=== PATIENT | male | born 1940 | race Caucasian/White ===

== ENCOUNTER 2017-02-13 20:15 | Observation (INO) ==
--- NOTE | 2017-02-13 20:24 | Emergency Department Note ---
Disposition Clinical Impression: Rectal bleeding Disposition: Admitted As Inpatient Condition: Fair General Adult HPI - General Chief complaint: ED GI Bleed Stated complaint: rectal bleeding Time Seen by Provider: 02/13/17 20:22 Source: patient, family Limitations: no limitations - History of Present Illness Pain Scale: 0 - Related Data Home Medications Medication Instructions Recorded Confirmed Allopurinol [Zyloprim] 300 mg PO DAILY 02/13/17 02/13/17 Cefdinir 250 mg PO 02/13/17 02/13/17 Levothyroxine [Synthroid] 50 mcg PO 0630 02/13/17 02/13/17 Losartan Potassium [Cozaar] 100 mg PO DAILY 02/13/17 02/13/17 Metoprolol Tartrate [Lopressor] 25 mg PO BID 02/13/17 02/13/17 Warfarin [Coumadin] 4 mg PO 1800 02/13/17 02/13/17 Allergies Allergy/AdvReac Type Severity Reaction Status Date / Time Penicillins AdvReac foot Verified 08/06/16 09:54 tenderness 50 years ago vancomycin AdvReac See Verified 08/06/16 09:54 Comments Past Medical History - Past Medical History Medical history: Reports: atrial fibrillation, coronary artery disease, GERD, GI bleed, hyperlipidemia, hypertension, thyroid disease Surgical history: Reports: appendectomy, cholecystectomy Psychiatric history: Reports: anxiety, depression - Social History Smoking Status: Unknown if ever smoked Smokeless Tobacco Status: No Alcohol use: Reports: none, occasionally Drug use: Reports: none Physical Exam - General Limitations: no limitations General appearance: alert, in no apparent distress Course Vital Signs Temperature 97.7 F 02/13/17 20:17 Pulse Rate 93 02/13/17 20:17 Respiratory Rate 14 02/13/17 20:17 Blood Pressure 178/93 02/13/17 20:17 O2 Sat by Pulse Oximetry 96 02/13/17 20:17 Temperature 98.0 F 02/14/17 03:53 Pulse Rate 61 02/14/17 03:53 Respiratory Rate 16 02/14/17 03:53 Blood Pressure 135/78 02/14/17 03:53 O2 Sat by Pulse Oximetry 96 02/14/17 03:53 Oxygen Delivery Oxygen Delivery Room Air Medical Decision Making - Lab Data Result diagrams: 02/13/17 20:52 02/13/17 20:52 Lab Results 1102/13/17 02/13/17 Range/Units 20:52 20:52 20:52 WBC 6.2 (4.3-11.1) K/mcL RBC 4.05 L (4.19-5.50) M/mcL Hgb 12.4 L (12.9-16.9) g/dL Hct 36.6 L (37.5-50.1) % MCV 90.4 (83.0-100.0) fL MCH 30.6 (28.0-33.3) pg MCHC 33.9 (31.6-35.5) g/dL RDW 15.4 H (11.5-14.5) % Plt Count 97 L (140-400) K/mcL MPV 9.7 (9.4-12.4) fL Immature Gran % 0.6 (0-4) % Seg Neutrophils % 77.6 % Lymphocytes % 12.3 % Monocytes % 7.1 % Eosinophils % 2.1 % Basophils % 0.3 % Neutrophils # 4.8 (1.6-8.9) K/mcL Lymphocytes # 0.8 (0.6-4.6) K/mcL Monocytes # 0.4 (0.0-1.3) K/mcL Eosinophils # 0.1 (0.0-0.6) K/mcL Basophils # 0.0 (0.0-0.2) K/mcL Immature Plt Fraction 3.0 (1.1-6.1) % PT 28.0 H (9.4-12.1) Seconds INR 2.5 Sodium 130 L (136-145) mEq/L Potassium 4.3 (3.5-4.5) mEq/L Chloride 95 L (98-109) mEq/L Carbon Dioxide 27 (19-29) mEq/L BUN 19 (8-26) mg/dL Creatinine 0.72 (0.72-1.25) mg/dL Est GFR ( Amer) > 60 (> 60) Est GFR (Non-Af Amer) > 60 (> 60) BUN/Creatinine Ratio 26 (6-26) Glucose 130 H (70-99) mg/dL Calculated Osmolality 274 L (280-300) Calcium 9.4 (8.6-10.8) mg/dL Total Bilirubin 1.9 H (0.2-1.2) mg/dL AST 52 H (5-34) Units/L ALT 33 (0-55) Units/L Alkaline Phosphatase 152 H (38-126) Units/L Serum Total Protein 7.7 (6.0-8.3) g/dL Albumin 3.5 (3.5-5.0) g/dL Globulin 4.2 H (2.4-3.5) g/dL Albumin/Globulin Ratio 0.8 L (1.1-2.2) Stool Occult Blood (Negative) Blood Type Antibody Screen 02/13/17 02/13/17 Range/Units 20:52 21:05 WBC (4.3-11.1) K/mcL RBC (4.19-5.50) M/mcL Hgb (12.9-16.9) g/dL Hct (37.5-50.1) % MCV (83.0-100.0) fL MCH (28.0-33.3) pg MCHC (31.6-35.5) g/dL RDW (11.5-14.5) % Plt Count (140-400) K/mcL MPV (9.4-12.4) fL Immature Gran % (0-4) % Seg Neutrophils % % Lymphocytes % % Monocytes % % Eosinophils % % Basophils % % Neutrophils # (1.6-8.9) K/mcL Lymphocytes # (0.6-4.6) K/mcL Monocytes # (0.0-1.3) K/mcL Eosinophils # (0.0-0.6) K/mcL Basophils # (0.0-0.2) K/mcL Immature Plt Fraction (1.1-6.1) % PT (9.4-12.1) Seconds INR Sodium (136-145) mEq/L Potassium (3.5-4.5) mEq/L Chloride (98-109) mEq/L Carbon Dioxide (19-29) mEq/L BUN (8-26) mg/dL Creatinine (0.72-1.25) mg/dL Est GFR ( Amer) (> 60) Est GFR (Non-Af Amer) (> 60) BUN/Creatinine Ratio (6-26) Glucose (70-99) mg/dL Calculated Osmolality (280-300) Calcium (8.6-10.8) mg/dL Total Bilirubin (0.2-1.2) mg/dL AST (5-34) Units/L ALT (0-55) Units/L Alkaline Phosphatase (38-126) Units/L Serum Total Protein (6.0-8.3) g/dL Albumin (3.5-5.0) g/dL Globulin (2.4-3.5) g/dL Albumin/Globulin Ratio (1.1-2.2) Stool Occult Blood Negative (Negative) Blood Type A POSITIVE Antibody Screen NEGATIVE Attestation Statement - Attestation Attestation: I examined this patient and my medical decision-making was reviewed with the Resident Physician. I agree with the documented findings, disposition and treatment plan as described except to the extent set forth below. [id number] time provided Patient notes bright red blood per rectum. He takes Coumadin for atrial fibrillation. Appears in no acute distress on exam. Triage note and vital signs reviewed by me
--- NOTE | 2017-02-13 20:39 | Emergency Department Note ---
Disposition Clinical Impression: Rectal bleeding Disposition: Admitted As Inpatient Condition: Fair Time of Disposition: 22:52 GI Bleed HPI - General Chief complaint: ED GI Bleed Stated complaint: rectal bleeding Time Seen by Provider: 02/13/17 20:22 Source: patient, family Limitations: no limitations Nursing Notes Reviewed: Yes Vital Signs Reviewed: Yes - History of Present Illness HPI Narrative: Patient is a 76-year-old male who presents to [facility] ED with a chief complaint of blood in his stool. States he had a bowel movement around 5:30 this evening and there was bright red blood mixed in with the stool. He then had another bowel movement about an hour ago and says it was again a lot of bright red blood. Denies any abdominal pain. No nausea, vomiting, fever or chills. No chest pain, difficulty breathing. No lightheadedness or dizziness. States his blood pressure has been running on the higher side. Patient currently does have a feeding tube in place for dysphagia. Does have a prior history of a upper GI bleed due to Colleen-Bhat tear. However states at that time his stool was melanotic. Pt Subjective Complaint: gross hematochezia Onset (ago): hour(s) Consistency: constant Severity: none Improves with: nothing Worsens with: nothing Context: history of GI bleed, anticoagulant use Associated symptoms: Denies: abdominal pain, nausea, vomiting, fever, chills, shortness of breath Treatments Prior to Arrival: none - Related Data Home Medications Medication Instructions Recorded Confirmed Allopurinol [Zyloprim] 300 mg PO DAILY 02/13/17 02/13/17 Cefdinir 250 mg PO 02/13/17 02/13/17 Levothyroxine [Synthroid] 50 mcg PO 0630 02/13/17 02/13/17 Losartan Potassium [Cozaar] 100 mg PO DAILY 02/13/17 02/13/17 Metoprolol Tartrate [Lopressor] 25 mg PO BID 02/13/17 02/13/17 Warfarin [Coumadin] 4 mg PO 1800 02/13/17 02/13/17 Allergies Allergy/AdvReac Type Severity Reaction Status Date / Time Penicillins AdvReac foot Verified 08/06/16 09:54 tenderness 50 years ago vancomycin AdvReac See Verified 08/06/16 09:54 Comments All systems ED: reviewed and negative except as stated. Past Medical History - Past Medical History Attestation: Yes The following information was validated with the patient. Source: patient Medical history: Reports: atrial fibrillation, coronary artery disease, GERD, GI bleed, hyperlipidemia, hypertension, thyroid disease Surgical history: Reports: appendectomy, cholecystectomy Psychiatric history: Reports: anxiety, depression - Social History Smoking Status: Unknown if ever smoked Smokeless Tobacco Status: No Alcohol use: Reports: none, occasionally Drug use: Reports: none Physical Exam CONSTITUTIONAL: Alert and oriented X3, well-nourished, well appearing, in no apparent distress HEAD: Normocephalic; atraumatic. EYES: EOMI, no scleral icterus. NOSE: The nose is normal in appearance without rhinorrhea RESP: Normal chest excursion with respiration; breath sounds clear and equal bilaterally; no wheezes, rhonchi, or rales CARD: Regular rhythm, without murmurs, rub or gallop ABD: Non-distended; non-tender, soft,without rigidity, rebound or guarding SKIN: Normal for age and race; warm and dry; no apparent lesions - General Limitations: no limitations General appearance: alert, in no apparent distress Course Course Narrative: Patient seen and examined. Complaint of rectal bleeding, bright red blood through the rectum. We will do a Hemoccult. Labs, coags, type and screen ordered. Since patient is on Coumadin, suspect will likely admit for monitoring. - Reevaluation(s) Reevaluation #1: Hemoglobin is 12.4. Vital signs stable. Hemoccult was actually negative for occult blood. However we will go ahead and admit for observation overnight since patient is on Coumadin. I discussed with hospitalist Dr. Toth who has accepted patient for admission. Time: 22:49 Vital Signs Temperature 97.7 F 02/13/17 20:17 Pulse Rate 93 02/13/17 20:17 Respiratory Rate 14 02/13/17 20:17 Blood Pressure 178/93 02/13/17 20:17 O2 Sat by Pulse Oximetry 96 02/13/17 20:17 Temperature 97.7 F 02/13/17 20:17 Pulse Rate 67 02/13/17 21:39 Respiratory Rate 18 02/13/17 22:46 Blood Pressure 127/79 02/13/17 22:46 O2 Sat by Pulse Oximetry 95 02/13/17 21:39 Oxygen Delivery Oxygen Delivery Room Air GI Bleed - Medical Records Medical records reviewed: Yes I reviewed the patient's medical records. - Lab Data Lab results reviewed: Yes I reviewed the patient's lab results. Result diagrams: 02/13/17 20:52 02/13/17 20:52 Lab Results 02/13/17 02/13/17 02/13/17 Range/Units 20:52 20:52 20:52 WBC 6.2 (4.3-11.1) K/mcL RBC 4.05 L (4.19-5.50) M/mcL Hgb 12.4 L (12.9-16.9) g/dL Hct 36.6 L (37.5-50.1) % MCV 90.4 (83.0-100.0) fL MCH 30.6 (28.0-33.3) pg MCHC 33.9 (31.6-35.5) g/dL RDW 15.4 H (11.5-14.5) % Plt Count 97 L (140-400) K/mcL MPV 9.7 (9.4-12.4) fL Immature Gran % 0.6 (0-4) % Seg Neutrophils % 77.6 % Lymphocytes % 12.3 % Monocytes % 7.1 % Eosinophils % 2.1 % Basophils % 0.3 % Neutrophils # 4.8 (1.6-8.9) K/mcL Lymphocytes # 0.8 (0.6-4.6) K/mcL Monocytes # 0.4 (0.0-1.3) K/mcL Eosinophils # 0.1 (0.0-0.6) K/mcL Basophils # 0.0 (0.0-0.2) K/mcL Immature Plt Fraction 3.0 (1.1-6.1) % PT 28.0 H (9.4-12.1) Seconds INR 2.5 Sodium 130 L (136-145) mEq/L Potassium 4.3 (3.5-4.5) mEq/L Chloride 95 L (98-109) mEq/L Carbon Dioxide 27 (19-29) mEq/L BUN 19 (8-26) mg/dL Creatinine 0.72 (0.72-1.25) mg/dL Est GFR ( Amer) > 60 (> 60) Est GFR (Non-Af Amer) > 60 (> 60) BUN/Creatinine Ratio 26 (6-26) Glucose 130 H (70-99) mg/dL Calculated Osmolality 274 L (280-300) Calcium 9.4 (8.6-10.8) mg/dL Total Bilirubin 1.9 H (0.2-1.2) mg/dL AST 52 H (5-34) Units/L ALT 33 (0-55) Units/L Alkaline Phosphatase 152 H (38-126) Units/L Serum Total Protein 7.7 (6.0-8.3) g/dL Albumin 3.5 (3.5-5.0) g/dL Globulin 4.2 H (2.4-3.5) g/dL Albumin/Globulin Ratio 0.8 L (1.1-2.2) Stool Occult Blood (Negative) Blood Type Antibody Screen 02/13/17 02/13/17 Range/Units 20:52 21:05 WBC (4.3-11.1) K/mcL RBC (4.19-5.50) M/mcL Hgb (12.9-16.9) g/dL Hct (37.5-50.1) % MCV (83.0-100.0) fL MCH (28.0-33.3) pg MCHC (31.6-35.5) g/dL RDW (11.5-14.5) % Plt Count (140-400) K/mcL MPV (9.4-12.4) fL Immature Gran % (0-4) % Seg Neutrophils % % Lymphocytes % % Monocytes % % Eosinophils % % Basophils % % Neutrophils # (1.6-8.9) K/mcL Lymphocytes # (0.6-4.6) K/mcL Monocytes # (0.0-1.3) K/mcL Eosinophils # (0.0-0.6) K/mcL Basophils # (0.0-0.2) K/mcL Immature Plt Fraction (1.1-6.1) % PT (9.4-12.1) Seconds INR Sodium (136-145) mEq/L Potassium (3.5-4.5) mEq/L Chloride (98-109) mEq/L Carbon Dioxide (19-29) mEq/L BUN (8-26) mg/dL Creatinine (0.72-1.25) mg/dL Est GFR ( Amer) (> 60) Est GFR (Non-Af Amer) (> 60) BUN/Creatinine Ratio (6-26) Glucose (70-99) mg/dL Calculated Osmolality (280-300) Calcium (8.6-10.8) mg/dL Total Bilirubin (0.2-1.2) mg/dL AST (5-34) Units/L ALT (0-55) Units/L Alkaline Phosphatase (38-126) Units/L Serum Total Protein (6.0-8.3) g/dL Albumin (3.5-5.0) g/dL Globulin (2.4-3.5) g/dL Albumin/Globulin Ratio (1.1-2.2) Stool Occult Blood Negative (Negative) Blood Type A POSITIVE Antibody Screen NEGATIVE - EKG Data EKG attestation: Yes I reviewed and interpreted this EKG. EKG results narrative: EKG done at 2038 shows atrial fibrillation with a rate of 81 bpm. Right axis deviation. Right bundle branch block present. No acute ST elevation.
[2017-02-13 20:59] LABS: Basophils % 0.3 %; Hematocrit 36.6 % (37.5-50.1); Immature Granulocytes % 0.6 % (0-4)
[2017-02-13 21:01] LABS: Eosinophils # 0.1 K/mcL (0.0-0.6); Eosinophils % 2.1 %; Hemoglobin 12.4 g/dL (12.9-16.9); Lymphocytes # 0.8 K/mcL (0.6-4.6); Lymphocytes % 12.3 %; Mean Corpuscular HGB Conc 33.9 g/dL (31.6-35.5); Mean Corpuscular Hemoglobin 30.6 pg (28.0-33.3); Mean Corpuscular Volume 90.4 fL (83.0-100.0); Mean Platelet Volume 9.7 fL (9.4-12.4); Monocytes # 0.4 K/mcL (0.0-1.3); Monocytes % 7.1 %; Neutrophils # 4.8 K/mcL (1.6-8.9); Platelet Count 97 K/mcL (140-400); Red Blood Count 4.05 M/mcL (4.19-5.50); Red Cell Distribution Width 15.4 % (11.5-14.5); Segmented Neutrophils % 77.6 %
[2017-02-13 21:08] LABS: INR 2.5
[2017-02-13 21:13] LABS: Alanine Aminotransferase 33 Units/L (0-55); Albumin 3.5 g/dL (3.5-5.0); Albumin/Globulin Ratio 0.8 (1.1-2.2); Alkaline Phosphatase 152 Units/L (38-126); Aspartate Amino Transferase 52 Units/L (5-34); BUN/Creatinine Ratio 26 (6-26); Bilirubin,Total 1.9 mg/dL (0.2-1.2); Blood Urea Nitrogen 19 mg/dL (8-26); Calcium 9.4 mg/dL (8.6-10.8); Carbon Dioxide 27 mEq/L (19-29); Chloride 95 mEq/L (98-109); Globulin 4.2 g/dL (2.4-3.5); Glucose 130 mg/dL (70-99); Osmolality,Calculated 274 (280-300); Potassium 4.3 mEq/L (3.5-4.5); Sodium 130 mEq/L (136-145); Total Protein 7.7 g/dL (6.0-8.3); eGFR For African Americans > 60 (> 60); eGFR For Non-African Americans > 60 (> 60)
--- NOTE | 2017-02-14 03:06 | Internal Med History&Physical ---
Date of Encounter: 02/14/17 Time of Encounter: 01:00 Assessment and Plan (1) GI bleeding Current visit: No Status: Acute -Patient with history of upper GI bleed secondary to Colleen-Bhat tear with 1 day history of lower GI bleed. -Patient is hemodynamically stable with a hemoglobin of 12.4. -GI will be consulted and appreciate recommendations. Qualifiers: GI bleed type/associated pathology: unspecified gastrointestinal hemorrhage type Qualified Code(s): K92.2 - Gastrointestinal hemorrhage, unspecified (2) Chronic anemia Current visit: Yes Status: Acute -Hemodynamically stable as above. -Will continue to monitor. (3) Chronic idiopathic thrombocytopenia Current visit: Yes Status: Acute -Platelets approximately at baseline at 97. -Will continue to monitor. (4) Atrial fibrillation Current visit: No Status: Chronic -Rate controlled; continue home medications. -INR within therapeutic range. Qualifiers: Atrial fibrillation type: paroxysmal Qualified Code(s): I48.0 - Paroxysmal atrial fibrillation (5) Hypertension Current visit: No Status: Chronic -Controlled; continue home medications. Qualifiers: Hypertension type: essential hypertension Qualified Code(s): I10 - Essential (primary) hypertension (6) Hypothyroidism Current visit: No Status: Chronic -Continue home medications. Qualifiers: Hypothyroidism type: acquired Qualified Code(s): E03.9 - Hypothyroidism, unspecified (7) DVT prophylaxis Current visit: No Status: Acute -INR within therapeutic range. Internal Medicine - H&P: HPI Chief complaint: recatal bleeding Admitted From: Home Plans for Post Hospital Care: Home History of present illness: Patient is a 76-year-old male with past medical history significant for upper GI bleed due to Colleen-Bhat tear, atrial fibrillation, coronary arterial disease, hypertension, hyperlipidemia and hypothyroid who presents to ER on 03/20 with rectal bleeding. He reports of a 1 day history of blood in toilet which occurred twice before deciding to come to the ER for evaluation. In the ER patient is Hemoccult negative and hemodynamically stable; INR within therapeutic range at 2.5. Patient will be admitted to medical surgical floor for observation for lower GI bleed. Past Med Surg Social Fam HX - Past Medical History Medical history: atrial fibrillation, coronary artery disease, GERD, GI bleed, hyperlipidemia, hypertension, thyroid disease, other Psychiatric history: anxiety, depression - Past Surgical History Surgical History: appendectomy, cholecystectomy - Social History Smoking Status: Former smoker Smokeless Tobacco Status: No Alcohol use: none Drug use: none - Family History Father Living Status: Hx Family Cardiac Disorders: Yes Hx Family Respiratory Disorders: (TB) Hx Family Cancer: Yes (prostate) Mother Living Status: Age at : 83 Cause of : Alzeimers Hx Family Cardiac Disorders: Yes (HTN) Hx Family Respiratory Disorders: No Hx Family Cancer: No Hx Family GI Disorders: No Hx Family Genitourinary Disorders: No Hx Family Endocrine Disorder: No Hx Family Musculoskeletal Disorders: No Hx Family Neuromuscular Disorders: No Hx Family Neurologic Disorders: Yes (Alzeimers) Hx Family HEENT Disorders: No Hx Family Autoimmune Disorders: No Hx Family Reproductive Disorders: No Hx Family Psychosocial Disorders: No Hx Family Medical Disorders: No Internal Medicine - H&P: Meds Allopurinol [Zyloprim] 300 mg PO DAILY 02/13/17 [History] Cefdinir 250 mg PO 02/13/17 [History] Levothyroxine [Synthroid] 50 mcg PO 0630 02/13/17 [History] Losartan Potassium [Cozaar] 100 mg PO DAILY 02/13/17 [History] Metoprolol Tartrate [Lopressor] 25 mg PO BID 02/13/17 [History] Warfarin [Coumadin] 4 mg PO 1800 02/13/17 [History] 3 Allergy/AdvReac Type Severity Reaction Status Date / Time Penicillins AdvReac foot Verified 08/06/16 09:54 tenderness 50 years ago vancomycin AdvReac See Verified 08/06/16 09:54 Comments All Systems PM: A 10-system review of systems was performed and is negative for pertinent findings except as documented above in the HPI. - Constitutional Vitals: Temp Pulse Resp BP Pulse Ox 98.1 F 71 16 130/71 95 02/14/17 00:13 02/14/17 00:13 02/14/17 00:13 02/14/17 00:13 02/14/17 00:13 General appearance: Present: A&O X 3 - Head Head exam: Present: normocephalic - Eye Eye exam: Present: normal appearance - ENT ENT exam: Present: mucous membranes dry - Respiratory Respiratory exam: Present: CTAB. Absent: accessory muscle use, rales, rhonchi, wheezes - Cardiovascular Cardiovascular exam: Present: RRR, +S1, +S2. Absent: diastolic murmur, gallop, rubs, systolic murmur - GI/Abdominal GI/Abdominal exam: Present: normal bowel sounds, soft, no peritoneal signs. Absent: distended, tenderness - Extremities Exam Extremities exam: Present: warm - Neurological Exam Neurological exam: Present: alert, oriented X3 - Psychiatric Psychiatric exam: Present: normal mood - Skin Skin exam: Present: normal color Internal Med - H&P Results - Labs CBC & Chem 7: 02/13/17 20:52 02/13/17 20:52
[2017-02-14] MEDS ORDERED: Naloxone 0.4 MG/ML INJ IVP PRN (03:41)
[2017-02-14 05:36] LABS: Basophils % 0.3 %; Eosinophils # 0.1 K/mcL (0.0-0.6); Eosinophils % 2.4 %; Hematocrit 34.3 % (37.5-50.1); Hemoglobin 11.5 g/dL (12.9-16.9); Immature Granulocytes % 0.7 % (0-4); Lymphocytes # 0.9 K/mcL (0.6-4.6); Lymphocytes % 16.1 %; Mean Corpuscular HGB Conc 33.5 g/dL (31.6-35.5); Mean Corpuscular Hemoglobin 30.3 pg (28.0-33.3); Mean Corpuscular Volume 90.5 fL (83.0-100.0); Monocytes # 0.5 K/mcL (0.0-1.3); Neutrophils # 4.2 K/mcL (1.6-8.9); Red Blood Count 3.79 M/mcL (4.19-5.50); Red Cell Distribution Width 15.4 % (11.5-14.5); Segmented Neutrophils % 72.5 %
[2017-02-14 05:45] LABS: Platelet Count 87 K/mcL (140-400)
[2017-02-14 05:46] LABS: BUN/Creatinine Ratio 30 (6-26); Blood Urea Nitrogen 19 mg/dL (8-26); Calcium 8.9 mg/dL (8.6-10.8); Carbon Dioxide 27 mEq/L (19-29); Chloride 100 mEq/L (98-109); Glucose 89 mg/dL (70-99); Osmolality,Calculated 278 (280-300); Potassium 4.3 mEq/L (3.5-4.5); Sodium 133 mEq/L (136-145); eGFR For African Americans > 60 (> 60); eGFR For Non-African Americans > 60 (> 60)
[2017-02-14] MEDS ORDERED: Cefdinir 300 MG CAPSULE PO SCH (09:00)
[2017-02-14] MEDS: Pantoprazole 40 MG VIAL IVP SCH ×2 (10:27→18:43)
[2017-02-14] MEDS: Furosemide 40 MG TABLET PO SCH ×2 (10:33→18:43)
--- NOTE | 2017-02-14 10:54 | Gastroenterology Consult Note ---
Addendum entered and electronically signed by Ge Hughes CNP 02/14/17 11 :26: Continue to hold Coumadin. Check PT/INR in AM, if greater than 1.5, recommend 2 units FFP prior to colonoscopy. Original Note: <Ge Hughes - Last Filed: 02/14/17 11:04> Date of Encounter: 02/14/17 Time of Encounter: 10:35 - Assessment and plan (1) GI bleeding Current Visit: No Status: Acute Assessment and plan: Pt presented with c/o BRBPR. Hgb on admission was 12.4 and this AM Hgb 11.5. Plan for colonoscopy tomorrow. Clear liquid diet today, no red or purple. NPO at midnight. If unable tolerate NuLytely please use MiraLAX prep. If not clear by 6 AM, give 2 tap water enemas. Qualifiers: GI bleed type/associated pathology: unspecified gastrointestinal hemorrhage type Qualified Code(s): K92.2 - Gastrointestinal hemorrhage, unspecified (2) Thrombocytopenia Current Visit: No Status: Chronic Assessment and plan: Liver ultrasound 01/28/2016 negative for cirrhosis but did not show liver cysts. (3) Elevated LFTs Current Visit: No Status: Acute Assessment and plan: Bilirubin and AST have been elevated since 2013, and appeared to be at baseline. Liver ultrasound 01/28/2016 negative for cirrhosis, but did show hepatic cysts. He did have a liver biopsy 09/07/2013 which was negative. - Time Spent With Patient Total time spent is greater than 50% in coordination of care (as documented) at patient's floor/unit and/or counseling patient: GI History of Present Illness - Data of Consult Patient: known to practice within the last 3 years Consult date: 02/14/17 Requesting Physician: Jennifer eRstrepo MD - Consult Narrative Reason for consult: Lower GI Bleed History of present illness: Mr. Perez is a 76 year old male with PMHx of A. fib, CAD, GERD, GI bleed, HLD , HTN, thyroid disease who presented to the ED with complaints of blood in his stool. States he had a bowel movement and there was bright red blood mixed in with the stool. He then had another bowel movement about an hour prior to admission and says it had a lot of bright red blood. He denies fever, chills, chest pain, dyspnea, dizziness, lightheadedness, abdominal pain, nausea, vomiting, hematemesis, of melena. In the ED fecal occult blood test was negative. Hgb on admission was 12.4 and this AM Hgb 11.5. Procedures: EGD Dr. Renteria: Normal, old PEG tube in place. EGD 01/31/2016 Dr. Salazar: Diverticulum in lower third of esophagus, PEG tube in place, clotted blood in cardia, mucosal tear in the gastric cardia-likely mallowy-wise tear. EGD 01/30/2016 Dr. Renteria: PEG placement. EGD 01/29/2016 Dr. Renteria: Normal EGD 09/06/2013 mildly erythematous/granular gastric mucosa. Empirically dilated. EGD 07/17/2013 normal Colonoscopy 09/04/2012 Dr. Soria two 5-12 mm tubular adenoma in the hepatic flexure and proximal ascending colon, diverticulosis, internal hemorrhoids. NSAIDs: None Anticoagulation: Coumadin Past Med Surg Social Fam HX - Past Medical History Medical history: atrial fibrillation, coronary artery disease, GERD, GI bleed, hyperlipidemia, hypertension, thyroid disease Psychiatric history: anxiety, depression - Past Surgical History Surgical History: appendectomy, cholecystectomy - Social History Smoking Status: Unknown if ever smoked Smokeless Tobacco Status: No Alcohol use: none, occasionally Drug use: none - Family History Father Living Status: Hx Family Cardiac Disorders: Yes Hx Family Respiratory Disorders: (TB) Hx Family Cancer: Yes (prostate) Mother Living Status: Age at : 83 Cause of : Alzeimers Hx Family Cardiac Disorders: Yes (HTN) Hx Family Respiratory Disorders: No Hx Family Cancer: No Hx Family GI Disorders: No Hx Family Genitourinary Disorders: No Hx Family Endocrine Disorder: No Hx Family Musculoskeletal Disorders: No Hx Family Neuromuscular Disorders: No Hx Family Neurologic Disorders: Yes (Alzeimers) Hx Family HEENT Disorders: No Hx Family Autoimmune Disorders: No Hx Family Reproductive Disorders: No Hx Family Psychosocial Disorders: No Hx Family Medical Disorders: No - Gastrointestinal Gastrointestinal: Present: as per HPI - Constitutional Constitutional: as per HPI - EENT Eyes: as per HPI Ears: Present: as per HPI Nose, mouth and throat: Present: as per HPI - Cardiovascular Cardiovascular ROS: Present: as per HPI - Respiratory Respiratory IM: Present: as per HPI - Genitourinary Genitourinary: Absent: change in color, Urinary frequency - Neurological ROS Neurological GI: Present: as per HPI - Hematologic/Lymphatic Hematologic/Lymphatic pediatric: Present: as per HPI - Musculoskeletal Musculoskeletal ROS GI: Present: as per HPI - Integumentary Integumentary GI: Present: as per HPI - Psychiatric ROS Psychiatric GI: Present: as per HPI - Endocrine Endocrine IM: Present: as per HPI - Constitutional Vitals: Temp Pulse Resp BP Pulse Ox 98.2 F 68 14 141/71 96 02/14/17 07:18 02/14/17 07:18 02/14/17 07:18 02/14/17 07:18 02/14/17 07:18 General appearance: Present: cooperative, A&O X 3, no acute distress, answers questions appropriately - Head Head exam: Present: atraumatic, normocephalic - Eye Eye exam: Present: normal appearance, sclera anicteric - ENT ENT exam: Present: mucous membranes dry - Neck Neck exam general surgery: Present: normal inspection, trachea midline - Respiratory Respiratory exam: Present: CTAB. Absent: rales, rhonchi - Cardiovascular Cardiovascular exam: Present: RRR, +S1, +S2 - GI/Abdominal GI/Abdominal exam: Present: soft, no peritoneal signs. Absent: distended, firm , guarding, tenderness Additional comments: PEG tub in place. - Rectal Rectal exam: Present: deferred - Extremities Exam Extremities exam: Present: warm - Neurological Exam Neurological exam: Present: no focal deficits - Psychiatric Psychiatric exam: Present: normal affect, normal mood - Skin Skin exam: Present: dry, intact, normal color, warm Results - Labs CBC & Chem 7: 02/14/17 05:14 02/14/17 05:14 Labs: Last Result Calcium 8.9 mg/dL (8.6-10.8) 02/14/17 05:14 Stool Occult Blood Negative (Negative) 02/13/17 21:05 Entire Visit Hgb 11.5 g/dL (12.9-16.9) L 02/14/17 05:14 Hct 34.3 % (37.5-50.1) L 02/14/17 05:14 PT 28.0 Seconds (9.4-12.1) H 02/13/17 20:52 Total Bilirubin 1.9 mg/dL (0.2-1.2) H 02/13/17 20:52 AST 52 Units/L (5-34) H 02/13/17 20:52 ALT 33 Units/L (0-55) 02/13/17 20:52 - ABG ABG results: PT/INR, D-dimer PT 28.0 Seconds (9.4-12.1) H 02/13/17 20:52 Consult Discharge Plan - Plan Referrals: Davy Holder DO [Primary Care Provider] - <Doris Renteria - Last Filed: 02/14/17 14:36> Date of Encounter: 02/14/17 Time of Encounter: 14:00 - Time Spent With Patient Total time spent is greater than 50% in coordination of care (as documented) at patient's floor/unit and/or counseling patient: GI History of Present Illness - Data of Consult Requesting Physician: Jennifer Restrepo MD - Consult Narrative History of present illness: Mr. Perez is a 76 year old male - Constitutional Vitals: Temp Pulse Resp BP Pulse Ox 98.0 F 92 18 156/82 96 02/14/17 11:02 02/14/17 11:02 02/14/17 11:02 02/14/17 11:02 02/14/17 11:02 Results - Labs CBC & Chem 7: 02/14/17 05:14 02/14/17 05:14 Labs: Last Result Calcium 8.9 mg/dL (8.6-10.8) 02/14/17 05:14 Stool Occult Blood Negative (Negative) 02/13/17 21:05 Entire Visit Hgb 11.5 g/dL (12.9-16.9) L 02/14/17 05:14 Hct 34.3 % (37.5-50.1) L 02/14/17 05:14 PT 27.7 Seconds (9.4-12.1) H 02/14/17 11:35 Total Bilirubin 1.9 mg/dL (0.2-1.2) H 02/13/17 20:52 AST 52 Units/L (5-34) H 02/13/17 20:52 ALT 33 Units/L (0-55) 02/13/17 20:52 - ABG ABG results: PT/INR, D-dimer PT 27.7 Seconds (9.4-12.1) H 02/14/17 11:35 - Attending Attestation I examined this patient and my medical decision-making was reviewed with the Resident Physician. I agree with the documented findings, disposition and treatment plan as described except to the extent set forth below.
[2017-02-14 12:00] LABS: INR 2.5; Prothrombin Time 27.7 Seconds (9.4-12.1)
--- NOTE | 2017-02-14 15:12 | Electrocardiograph Report ---
[place] [id number] Test Date: 2017-02-13 Pat Name: Sean Perez Department: 103 Room: 3A Gender: M [employer]: ADRIANA : 1940 Requested By: Canelo Fuentes Order Number: [id number] Reading MD: Neri Mcdaniel MD Measurements Intervals [place] Rate: 81 P: IN: 0 QRS: 120 QRSD: 119 T: -14 QT: 389 QTc: 427 Interpretive Statements ATRIAL FIBRILLATION MARKED RIGHT AXIS DEVIATION RIGHT BUNDLE BRANCH BLOCK Electronically Signed On 02-14-2017 15:10:20 EST by Neri Mcdaniel MD
[2017-02-14] MEDS ORDERED: SODIUM CHLORIDE/NAHCO3/KCL/PEG 4,000 ML SOLN.RECON PO ONE (17:00)
--- NOTE | 2017-02-14 17:21 | Event Note ---
Date of Encounter: 02/14/17 Time of Encounter: 14:50 Patient is a 76y/o male admitted for BRBPR/GI bleed. He was evaluated by GI and is scheduled for colonoscopy in am has history of Afib, holding coumadin at this time given GI bleed will monitor INR, if INR>1.5 pt to receive FFP in am Pt seen and examined at bedside and denies any abd discomfort, however does report of having another episode of BRBPR since hospitalization H&H within acceptable range. will continue to closely monitor restarted home medications
[2017-02-14 21:27] LABS: Hematocrit 35.5 % (37.5-50.1); Hemoglobin 12.1 g/dL (12.9-16.9)
[2017-02-15] MEDS: Pantoprazole 40 MG VIAL IVP SCH ×2 (05:30→18:17)
[2017-02-15 05:42] LABS: INR 2.2; Mean Platelet Volume 9.8 fL (9.4-12.4); Prothrombin Time 24.3 Seconds (9.4-12.1)
[2017-02-15 05:44] LABS: Basophils % 0.5 %; Eosinophils # 0.1 K/mcL (0.0-0.6); Eosinophils % 1.4 %; Hematocrit 37.1 % (37.5-50.1); Hemoglobin 12.3 g/dL (12.9-16.9); Immature Granulocytes % 0.5 % (0-4); Immature Platelets 3.1 % (1.1-6.1); Lymphocytes # 0.9 K/mcL (0.6-4.6); Mean Corpuscular HGB Conc 33.2 g/dL (31.6-35.5); Mean Corpuscular Hemoglobin 30.3 pg (28.0-33.3); Mean Corpuscular Volume 91.4 fL (83.0-100.0); Monocytes # 0.5 K/mcL (0.0-1.3); Monocytes % 7.3 %; Red Blood Count 4.06 M/mcL (4.19-5.50); Red Cell Distribution Width 15.3 % (11.5-14.5); Segmented Neutrophils % 77.3 %
[2017-02-15 05:45] LABS: Platelet Count 94 K/mcL (140-400)
[2017-02-15 05:51] LABS: Alanine Aminotransferase 35 Units/L (0-55); Albumin 3.3 g/dL (3.5-5.0); Albumin/Globulin Ratio 0.8 (1.1-2.2); Alkaline Phosphatase 141 Units/L (38-126); Aspartate Amino Transferase 55 Units/L (5-34); BUN/Creatinine Ratio 25 (6-26); Blood Urea Nitrogen 17 mg/dL (8-26); Calcium 8.7 mg/dL (8.6-10.8); Carbon Dioxide 24 mEq/L (19-29); Chloride 101 mEq/L (98-109); Globulin 4.1 g/dL (2.4-3.5); Glucose 79 mg/dL (70-99); Osmolality,Calculated 272 (280-300); Phosphorous 2.4 mg/dL (2.3-4.7); Potassium 4.2 mEq/L (3.5-4.5); Sodium 131 mEq/L (136-145); Total Protein 7.4 g/dL (6.0-8.3); eGFR For African Americans > 60 (> 60); eGFR For Non-African Americans > 60 (> 60)
[2017-02-15 05:52] LABS: Bilirubin,Total 3.6 mg/dL (0.2-1.2)
[2017-02-15] MEDS ORDERED: 0.9 % Sodium Chloride 250 ML ONE ×2 (09:18→12:20)
[2017-02-15 10:50] LABS: INR 2.2; Prothrombin Time 23.7 Seconds (9.4-12.1)
--- NOTE | 2017-02-15 11:52 | Anesthesia Evaluation PreOp ---
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 Any Significant HX Other Medical History: Diabetes Type II, Thyroid (hypo), GERD, Other (chronic ITP chronic anemia) Anesthesia History: No Prior Anesthetic Complications, Past Anesthesia (justine, appy, EGD 12/19) Alcohol Use: none, occasionally Drug use: none Medications and Allergies Allopurinol [Zyloprim] 150 mg PO DAILY 02/13/17 [History] Cefdinir 6 ml PO BID 02/13/17 [History] Levothyroxine [Synthroid] 50 mcg PO 0630 02/13/17 [History] Losartan Potassium [Cozaar] 100 mg PO DAILY 02/13/17 [History] Metoprolol Tartrate [Lopressor] 25 mg PO BID 02/13/17 [History] Warfarin [Coumadin] 4 mg PO 1800 02/13/17 [History] ALPRAZolam [Xanax 0.5 MG Tablet] 0.5 mg PO BID PRN 02/14/17 [History] Furosemide [Lasix] 40 mg PO DAILY 02/14/17 [History] Potassium Chloride [K-Tab ER] 20 meq PO DAILY 02/14/17 [History] 3 Allergy/AdvReac Type Severity Reaction Status Date / Time Penicillins AdvReac foot Verified 08/06/16 09:54 tenderness 50 years ago vancomycin AdvReac See Verified 08/06/16 09:54 Comments - Meds/Allergy Pre-op Review Medications Reviewed: Yes Allergies Reviewed: Yes Beta Blockers on Current Med List: Yes If Beta Blockers taken, Date/Time (Last Dose taken): 02-14 @ [id number] Anesthesia Results - Labs 02/15/17 05:30 02/15/17 05:30 Anesthesia Exam Selected Entries 02/15/17 11:50 Temperature 97.8 F Pulse Rate 104 Respiratory Rate 16 Blood Pressure 141/56 O2 Sat by Pulse Oximetry 97 Weight: 73kg - HEENT Pupil (Motor): EOMI Mallampati: II Teeth: Edentulous Oral Opening: Less than or equal to 3 - HISTORIOGRAPHY TEACHER LOC: Oriented HISTORIOGRAPHY TEACHER Motor: Normal RUE, Normal LUE, Normal RLE, Normal LLE, Normal Face HISTORIOGRAPHY TEACHER Sensory: Normal: RUE, LUE, RLE, LLE, Face - Cardiac Rhythm: Irregular Murmur: None - Pulmonary Breath Sounds: bilateral Clear Respiratory Effort: Symmetrical Anesthesia Assess/Plan ASA Score: 3 Modified Lupe Scale for Level of Consciousness: Cooperative, oriented, and tranquil Anesthetic Plan: MAC Recovery Plan: Other (agrees to MAC)
--- NOTE | 2017-02-15 14:22 | Internal Med Progress Note ---
Date of Encounter: 02/15/17 Time of Encounter: 13:10 - Assessment and plan (1) GI bleeding Current Visit: No Status: Acute Assessment and plan: Scheduled for colonoscopy later today, pending INR<1.5 currently receiving FFP GI on board and consultation appreciated NPO at this time for tentative procedure PPI H&H within acceptable range will continue to monitor Qualifiers: GI bleed type/associated pathology: unspecified gastrointestinal hemorrhage type Qualified Code(s): K92.2 - Gastrointestinal hemorrhage, unspecified (2) Atrial fibrillation Current Visit: No Status: Chronic Assessment and plan: Rate controlled with BB anticoagulated with Coumadin Coumadin on hold given GI bleed Qualifiers: Atrial fibrillation type: paroxysmal Qualified Code(s): I48.0 - Paroxysmal atrial fibrillation (3) Chronic anemia Current Visit: Yes Status: Chronic Assessment and plan: H&H low but acceptable no recurrent bleeding episodes reported will continue to closely monitor (4) Chronic idiopathic thrombocytopenia Current Visit: Yes Status: Chronic (5) GERD (gastroesophageal reflux disease) Current Visit: No Status: Chronic Qualifiers: Esophagitis presence: esophagitis presence not specified Qualified Code(s) : K21.9 - Gastro-esophageal reflux disease without esophagitis (6) Hypertension Current Visit: No Status: Chronic Assessment and plan: BP within acceptable range continue home meds Qualifiers: Hypertension type: essential hypertension Qualified Code(s): I10 - Essential (primary) hypertension (7) Hypothyroidism Current Visit: No Status: Chronic Assessment and plan: continue Levothyroxine Qualifiers: Hypothyroidism type: acquired Qualified Code(s): E03.9 - Hypothyroidism, unspecified (8) DVT prophylaxis Current Visit: No Status: Acute Assessment and plan: SCD - Subjective Interval history: Patient seen and examined at bedside. Resting in bed and denies any recurrent bleeding episodes since yesterday. Scheduled for colonoscopy later today, receiving FFP at this time due to supratherapeutic INR. No overnight events reported. - Constitutional Vitals: Temp Pulse Resp BP Pulse Ox 98.0 F 96 16 143/75 96 02/15/17 12:48 02/15/17 12:48 02/15/17 12:48 02/15/17 12:48 02/15/17 12:48 General appearance: Present: cooperative, A&O X 3, pleasant, no acute distress, answers questions appropriately - Head Head exam: Present: atraumatic, normocephalic - Eye Eye exam: Present: conjuntiva pink, sclera anicteric - Respiratory Respiratory exam: Present: CTAB. Absent: accessory muscle use, rales, rhonchi, wheezes - Cardiovascular Cardiovascular exam: Present: RRR, +S1, +S2. Absent: diastolic murmur, gallop, rubs, systolic murmur - GI/Abdominal GI/Abdominal exam: Present: normal bowel sounds (PEG tube in place), soft, no peritoneal signs. Absent: distended, tenderness - Extremities Exam Extremities exam: Present: warm, radial pulses palpable and symmetrical. Absent : calf tenderness, tenderness - Neurological Exam Neurological exam: Present: alert, oriented X3 - Psychiatric Psychiatric exam: Present: normal affect, normal mood Internal Medicine: Result - Labs CBC & Chem 7: 02/15/17 05:30 02/15/17 05:30 Labs: Short CBC 02/14/17 02/15/17 Range/Units 21:13 05:30 WBC 6.5 (4.3-11.1) K/mcL Hgb 12.1 L 12.3 L (12.9-16.9) g/dL Hct 35.5 L 37.1 L (37.5-50.1) % Plt Count 94 L (140-400) K/mcL Neutrophils # 5.0 (1.6-8.9) K/mcL BMP 02/15/17 05:30 Sodium 131 L Potassium 4.2 Chloride 101 Carbon Dioxide 24 BUN 17 Creatinine 0.67 L Glucose 79 Calcium 8.7 Liver Function 02/15/17 Range/Units 05:30 Total Bilirubin 3.6 H D (0.2-1.2) mg/dL AST 55 H (5-34) Units/L ALT 35 (0-55) Units/L Alkaline Phosphatase 141 H (38-126) Units/L Albumin 3.3 L (3.5-5.0) g/dL - ABG Interpretation ABG results: PT/INR, D-dimer PT 23.7 Seconds (9.4-12.1) H 02/15/17 10:30 - VTE Reasons for not Prescribing Prophylaxis: Medical contraindication Consult Discharge Plan - Plan Referrals: Davy Holder DO [Primary Care Provider] -
[2017-02-15 17:00] LABS: INR 1.7
[2017-02-15] MEDS: Furosemide 40 MG TABLET PO SCH (18:18)
[2017-02-15] MEDS: ALPRAZolam 0.5 MG TABLET PO PRN (23:01)
[2017-02-16 06:45] LABS: Basophils % 0.3 %; Hematocrit 37.5 % (37.5-50.1); Hemoglobin 12.5 g/dL (12.9-16.9); Mean Corpuscular HGB Conc 33.3 g/dL (31.6-35.5); Mean Corpuscular Hemoglobin 30.4 pg (28.0-33.3); Mean Corpuscular Volume 91.2 fL (83.0-100.0); Mean Platelet Volume 9.6 fL (9.4-12.4); Red Blood Count 4.11 M/mcL (4.19-5.50)
[2017-02-16 06:47] LABS: Eosinophils # 0.1 K/mcL (0.0-0.6); Eosinophils % 1.8 %; Immature Granulocytes % 0.7 % (0-4); Immature Platelets 3.7 % (1.1-6.1); Lymphocytes # 0.8 K/mcL (0.6-4.6); Lymphocytes % 11.2 %; Monocytes # 0.6 K/mcL (0.0-1.3); Monocytes % 8.3 %; Red Cell Distribution Width 15.3 % (11.5-14.5); Segmented Neutrophils % 77.7 %
[2017-02-16 06:50] LABS: Neutrophils # 5.5 K/mcL (1.6-8.9); Platelet Count 95 K/mcL (140-400)
[2017-02-16] MEDS: Pantoprazole 40 MG VIAL IVP SCH ×2 (06:51→18:23)
[2017-02-16 06:59] LABS: BUN/Creatinine Ratio 26 (6-26); Blood Urea Nitrogen 18 mg/dL (8-26); Calcium 8.7 mg/dL (8.6-10.8); Carbon Dioxide 24 mEq/L (19-29); Chloride 100 mEq/L (98-109); Glucose 66 mg/dL (70-99); Magnesium 1.8 mg/dL (1.6-2.6); Osmolality,Calculated 276 (280-300); Phosphorous 2.2 mg/dL (2.3-4.7); eGFR For African Americans > 60 (> 60); eGFR For Non-African Americans > 60 (> 60)
[2017-02-16 07:00] LABS: Sodium 133 mEq/L (136-145)
[2017-02-16 08:41] LABS: INR 2.4
[2017-02-16] MEDS: Furosemide 40 MG TABLET PO SCH (09:27)
[2017-02-16] MEDS ORDERED: 0.9 % Sodium Chloride 250 ML ONE ×2 (09:44→12:31)
--- NOTE | 2017-02-16 10:06 | Internal Med Progress Note ---
Date of Encounter: 02/16/17 Time of Encounter: 09:45 - Assessment and plan (1) GI bleeding Current Visit: No Status: Acute Assessment and plan: Scheduled for colonoscopy later today currently receiving FFP GI on board and consultation appreciated NPO at this time for tentative procedure PPI H&H within acceptable range will continue to monitor Qualifiers: GI bleed type/associated pathology: unspecified gastrointestinal hemorrhage type Qualified Code(s): K92.2 - Gastrointestinal hemorrhage, unspecified (2) Atrial fibrillation Current Visit: No Status: Chronic Assessment and plan: Rate controlled with BB anticoagulated with Coumadin Coumadin on hold given GI bleed Qualifiers: Atrial fibrillation type: paroxysmal Qualified Code(s): I48.0 - Paroxysmal atrial fibrillation (3) Chronic anemia Current Visit: Yes Status: Chronic Assessment and plan: H&H low but acceptable no recurrent bleeding episodes reported will continue to closely monitor (4) Chronic idiopathic thrombocytopenia Current Visit: Yes Status: Chronic (5) GERD (gastroesophageal reflux disease) Current Visit: No Status: Chronic Qualifiers: Esophagitis presence: esophagitis presence not specified Qualified Code(s) : K21.9 - Gastro-esophageal reflux disease without esophagitis (6) Hypertension Current Visit: No Status: Chronic Assessment and plan: BP within acceptable range continue home meds Qualifiers: Hypertension type: essential hypertension Qualified Code(s): I10 - Essential (primary) hypertension (7) Hypothyroidism Current Visit: No Status: Chronic Assessment and plan: continue Levothyroxine Qualifiers: Hypothyroidism type: acquired Qualified Code(s): E03.9 - Hypothyroidism, unspecified (8) DVT prophylaxis Current Visit: No Status: Acute Assessment and plan: SCD (9) Electrolyte abnormality Current Visit: Yes Status: Acute Assessment and plan: Hypophosphatemia Phos supplemented - Subjective Interval history: Patient seen and examined with family present at bedside. Resting comfortably in bed and denies any distress. Pt was not able to receive his colonoscopy yesterday and is scheduled to have it later today. Dr. Renteria informed and states patient will go for the procedure around 2 today. Currently being transfused 2units of FFP given current INR level. No overnight events reported - Constitutional Vitals: Temp Pulse Resp BP Pulse Ox 97.8 F 80 18 121/72 96 02/16/17 07:06 02/16/17 07:06 02/16/17 07:06 02/16/17 07:06 02/16/17 09:40 General appearance: Present: cooperative, A&O X 3, pleasant, no acute distress, answers questions appropriately - Head Head exam: Present: atraumatic, normocephalic - Respiratory Respiratory exam: Present: CTAB. Absent: accessory muscle use, rales, rhonchi, wheezes - Cardiovascular Cardiovascular exam: Present: irregular rhythm, +S1, +S2 - GI/Abdominal GI/Abdominal exam: Present: normal bowel sounds, soft, no peritoneal signs. Absent: distended, tenderness Additional comments: PEG tube in place-PEG site clean - Extremities Exam Extremities exam: Present: warm, radial pulses palpable and symmetrical. Absent : calf tenderness, cyanotic, pedal edema - Neurological Exam Neurological exam: Present: alert, oriented X3 - Psychiatric Psychiatric exam: Present: normal affect, normal mood Internal Medicine: Result - Labs CBC & Chem 7: 02/16/17 06:32 02/16/17 06:32 Labs: Short CBC 02/16/17 Range/Units 06:32 WBC 7.1 (4.3-11.1) K/mcL Hgb 12.5 L (12.9-16.9) g/dL Hct 37.5 (37.5-50.1) % Plt Count 95 L (140-400) K/mcL Neutrophils # 5.5 (1.6-8.9) K/mcL BMP 02/16/17 06:32 Sodium 133 L Potassium 4.0 Chloride 100 Carbon Dioxide 24 BUN 18 Creatinine 0.68 L Glucose 66 L Calcium 8.7 - ABG Interpretation ABG results: PT/INR, D-dimer PT 26.0 Seconds (9.4-12.1) H 02/16/17 08:27 - VTE Reasons for not Prescribing Prophylaxis: Medical contraindication Consult Discharge Plan - Plan Referrals: Davy Holder DO [Primary Care Provider] -
[2017-02-16 14:57] LABS: Prothrombin Time 21.4 Seconds (9.4-12.1)
[2017-02-16] MEDS ORDERED: *HR* Midazolam HCl 5 MG/5 ML VIAL IVP ONE ×2 (16:25→16:48)
[2017-02-16] MEDS ORDERED: *HR* FentaNYL (PF) 100 MCG/2 ML VIAL ONE (16:26)
[2017-02-16] MEDS ORDERED: *HR* FentaNYL (PF) 100 MCG/2 ML VIAL IVP ONE (16:48)
[2017-02-16] MEDS ORDERED: Simethicone 40 MG/0.6 ML MLS IR ONE (16:48)
[2017-02-16] MEDS ORDERED: 0.9 % Sodium Chloride 1,000 ML IVC SCH (17:00)
[2017-02-16] MEDS: ALPRAZolam 0.5 MG TABLET PO PRN (22:06)
[2017-02-17 05:29] LABS: Basophils % 0.3 %; Eosinophils # 0.1 K/mcL (0.0-0.6); Eosinophils % 1.7 %; Hematocrit 34.8 % (37.5-50.1); Hemoglobin 11.8 g/dL (12.9-16.9); Immature Granulocytes % 0.4 % (0-4); Immature Platelets 2.6 % (1.1-6.1); Lymphocytes # 0.8 K/mcL (0.6-4.6); Mean Corpuscular HGB Conc 33.9 g/dL (31.6-35.5); Mean Corpuscular Hemoglobin 30.6 pg (28.0-33.3); Mean Corpuscular Volume 90.2 fL (83.0-100.0); Mean Platelet Volume 10.1 fL (9.4-12.4); Monocytes # 0.6 K/mcL (0.0-1.3); Monocytes % 8.3 %; Neutrophils # 5.9 K/mcL (1.6-8.9); Platelet Count 101 K/mcL (140-400); Red Blood Count 3.86 M/mcL (4.19-5.50); Red Cell Distribution Width 15.3 % (11.5-14.5); Segmented Neutrophils % 79.3 %
[2017-02-17 05:33] LABS: INR 2.5; Prothrombin Time 27.2 Seconds (9.4-12.1)
[2017-02-17 05:41] LABS: BUN/Creatinine Ratio 32 (6-26); Blood Urea Nitrogen 22 mg/dL (8-26); Calcium 8.3 mg/dL (8.6-10.8); Carbon Dioxide 27 mEq/L (19-29); Chloride 100 mEq/L (98-109); Glucose 90 mg/dL (70-99); Magnesium 1.7 mg/dL (1.6-2.6); Osmolality,Calculated 285 (280-300); Phosphorous 3.1 mg/dL (2.3-4.7); Potassium 3.2 mEq/L (3.5-4.5); Sodium 136 mEq/L (136-145); eGFR For African Americans > 60 (> 60); eGFR For Non-African Americans > 60 (> 60)
[2017-02-17] MEDS: Pantoprazole 40 MG VIAL IVP SCH (08:38)
[2017-02-17] MEDS: Furosemide 40 MG TABLET PO SCH (09:20)
[2017-02-17] MEDS ORDERED: Potassium Chloride Elixir 20 MEQ/15 ML UDC GTUBE SCH (11:15)
[2017-02-17] MEDS ORDERED: Potassium Chloride Elixir 20 MEQ/15 ML UDC GTUBE ONE (11:15)
[2017-02-17 11:26] VITALS: BP 114/69
--- NOTE | 2017-02-17 11:34 | Discharge Summary ---
Date of Encounter: 02/17/17 Time of Encounter: 11:32 - Discharge Diagnosis (1) GI bleeding Priority: Primary Status: Acute Qualifiers: GI bleed type/associated pathology: unspecified gastrointestinal hemorrhage type Qualified Code(s): K92.2 - Gastrointestinal hemorrhage, unspecified (2) Atrial fibrillation Priority: Secondary Status: Chronic Qualifiers: Atrial fibrillation type: paroxysmal Qualified Code(s): I48.0 - Paroxysmal atrial fibrillation (3) Chronic anemia Priority: Secondary Status: Chronic (4) Chronic idiopathic thrombocytopenia Priority: Secondary Status: Chronic (5) GERD (gastroesophageal reflux disease) Priority: Secondary Status: Chronic Qualifiers: Esophagitis presence: esophagitis presence not specified Qualified Code(s) : K21.9 - Gastro-esophageal reflux disease without esophagitis (6) Hypertension Priority: Secondary Status: Chronic Qualifiers: Hypertension type: essential hypertension Qualified Code(s): I10 - Essential (primary) hypertension (7) Hypothyroidism Priority: Secondary Status: Chronic Qualifiers: Hypothyroidism type: acquired Qualified Code(s): E03.9 - Hypothyroidism, unspecified (8) DVT prophylaxis Priority: Secondary Status: Acute (9) Electrolyte abnormality Priority: Secondary Status: Acute - Discharge Medications Prescriptions: Aspirin Enteric Coated [Aspirin EC] 81 mg PO DAILY #30 tablet. [place] Medications: Allopurinol [Zyloprim] 150 mg PO DAILY 02/13/17 [History] Cefdinir 6 ml PO BID 02/13/17 [History] Levothyroxine [Synthroid] 50 mcg PO 0630 02/13/17 [History] Losartan Potassium [Cozaar] 100 mg PO DAILY 02/13/17 [History] Metoprolol Tartrate [Lopressor] 25 mg PO BID 02/13/17 [History] ALPRAZolam [Xanax 0.5 MG Tablet] 0.5 mg PO BID PRN 02/14/17 [History] Furosemide [Lasix] 40 mg PO DAILY 02/14/17 [History] Potassium Chloride [K-Tab ER] 20 meq PO DAILY 02/14/17 [History] Aspirin Enteric Coated [Aspirin EC] 81 mg PO DAILY #30 tablet. 02/17/17 [Rx] Allergies/Adverse Reactions: 3 Allergy/AdvReac Type Severity Reaction Status Date / Time Penicillins AdvReac foot Verified 08/06/16 09:54 tenderness 50 years ago vancomycin AdvReac See Verified 08/06/16 09:54 Comments Date of admission: 02/13/17 21:42 Primary care physician: Kait Shrestha Consults: 02/13/17 23:50 Consult to Pastoral Services [CONS] Routine Comment: 02/14/17 03:44 Consult to Gastroenterology [CONS] Routine Consulting Provider: Alethea Vieyra Reason for Consult: lower gi bleed Call Completed: No Discharging clinician: Jennifer Restrepo Anticipated date of discharge: 02/17/17 - Patient Status Disposition: Home, Self-Care Condition: Good Functional capacity at discharge: independent ambulation Overall status at discharge: patient is back to baseline - Discharge Instructions Follow Up With: Davy Holder DO [Primary Care Provider] - Additional Instructions: Please follow up with your primary care physician within five days after your discharge from the hospital. Please follow up with cardiology and GI within one to two weeks after your discharge from the hospital. Your home dose of Coumadin has been discontinued. Aspirin 81mg once a day has been added to your home medications Please seek medical help immediately if you are noted to have blood in stool Please resume all home medications as prescribed by your primary care physician - Diet and Activity Activity: resume usual activities as tolerated Diet: advance to your usual diet Hospital course: Mr. Perez is a 76 year old male with PMH of CAD, Afib, GERD, dysphagia s/p PEG tube placement, hypothyroidism admitted for LGIB. He was evaluated by GI and underwent colonoscopy. As per Dr. Renteria, patient was found to have multiple areas in the colon with slow oozing bleed and it is recommended to discontinue coumadin use. Pt is informed of these findings and is in agreement with discontinuing coumadin and starting Aspirin 81mg once a day. Pt's H&H remained stable and had no recurrent GI bleeding for the last 48 hours. He is tolerating tube feeds and is currently hemodynamically stable. He will be discharged to home with follow up with PCP and cardiology. Pt and family (present at bedside) demonstrate understanding of his diagnosis and agree with the discharge care and plan. - Time Spent with Patient Total time spent providing and/or coordinating discharge services: Greater than 30 minutes - Constitutional Vitals: Temp Pulse Resp BP Pulse Ox 98.1 F 90 15 114/69 93 02/17/17 11:17 02/17/17 11:17 02/17/17 11:17 02/17/17 11:17 02/17/17 11:17 General appearance: Present: cooperative, A&O X 3, pleasant, no acute distress, answers questions appropriately - Head Head exam: Present: atraumatic, normocephalic - Eye Eye exam: Present: conjuntiva pink, sclera anicteric - Respiratory Respiratory exam: Present: CTAB. Absent: accessory muscle use, rales, rhonchi, wheezes - Cardiovascular Cardiovascular exam: Present: RRR, +S1, +S2. Absent: diastolic murmur, gallop, rubs, systolic murmur - GI/Abdominal GI/Abdominal exam: Present: normal bowel sounds, soft, no peritoneal signs. Absent: distended, tenderness Additional comments: PEG tube in place - Extremities Exam Extremities exam: Present: warm, radial pulses palpable and symmetrical. Absent : calf tenderness, cyanotic, pedal edema - Neurological Exam Neurological exam: Present: alert, oriented X3 - VTE Reasons for not Prescribing Prophylaxis: Medical contraindication Documentation of Mechanical Device: Intermittent pneumatic compression device
== END 2017-02-17 13:30 | disposition home or self-care (01) ==
LOC: 3ANU 20:15 → EMEROO 20:15 → SUATTDRO 21:42 → 3ANU 22:51
PROVIDERS: ADMIT Hospitalist; ATTEND Internal Medicine
PROC: ENDOCCB (2017-02-16 13:40)

== ENCOUNTER 2017-08-21 14:40 | Inpatient (IN) ==
[2017-08-21 15:27] LABS: Basophils % 0.1 %; Eosinophils % 0.4 %; Hematocrit 36.1 % (37.5-50.1); Immature Granulocytes % 0.4 % (0-4); Lymphocytes # 0.5 K/mcL (0.6-4.6); Lymphocytes % 6.3 %; Mean Corpuscular HGB Conc 33.2 g/dL (31.6-35.5); Mean Corpuscular Hemoglobin 29.7 pg (28.0-33.3); Mean Corpuscular Volume 89.4 fL (83.0-100.0); Mean Platelet Volume 10.1 fL (9.4-12.4); Monocytes # 0.5 K/mcL (0.0-1.3); Neutrophils # 7.1 K/mcL (1.6-8.9); Platelet Count 108 K/mcL (140-400); Red Blood Count 4.04 M/mcL (4.19-5.50); Red Cell Distribution Width 15.5 % (11.5-14.5); Segmented Neutrophils % 86.8 %
[2017-08-21 15:31] LABS: INR 1.3; Prothrombin Time 14.5 Seconds (9.4-12.1)
[2017-08-21 15:51] LABS: BUN/Creatinine Ratio 38 (6-26); Blood Urea Nitrogen 23 mg/dL (8-23); Calcium 9.2 mg/dL (8.6-10.3); Carbon Dioxide 28 mEq/L (23-29); Chloride 96 mEq/L (98-107); Glucose 152 mg/dL (70-105); Osmolality,Calculated 279 (280-300); Potassium 4.6 mEq/L (3.5-5.1); Sodium 131 mEq/L (136-145); Troponin I < 0.03 ng/mL (< 0.04); eGFR For African Americans > 60 (> 60); eGFR For Non-African Americans > 60 (> 60)
[2017-08-21] MEDS ORDERED: Isovue-370 500 ML INFUS..BTL IV ONE (16:40)
--- NOTE | 2017-08-21 17:16 | Emergency Department Note ---
Disposition Clinical Impression: CAP (community acquired pneumonia), Pleural effusion on right, Shortness of breath Disposition: Admitted As Inpatient Condition: Fair Referrals: Davy Holder DO [Primary Care Provider] - Forms: ED Satisfaction Letter Time of Disposition: 18:16 General Adult HPI - General Chief complaint: ED Fever Stated complaint: fever/low O2 sats/prod cough thick white sputum Time Seen by Provider: 08/21/17 14:49 Source: patient Limitations: no limitations - History of Present Illness Pain Scale: 0 - Related Data Home Medications Medication Instructions Recorded Confirmed Allopurinol [Zyloprim] 150 mg PO DAILY 02/13/17 02/14/17 Cefdinir 6 ml PO BID 02/13/17 02/14/17 Levothyroxine [Synthroid] 50 mcg PO 0630 02/13/17 02/14/17 Losartan Potassium [Cozaar] 100 mg PO DAILY 02/13/17 02/14/17 Metoprolol Tartrate [Lopressor] 25 mg PO BID 02/13/17 02/14/17 ALPRAZolam [Xanax 0.5 MG Tablet] 0.5 mg PO BID PRN 02/14/17 02/14/17 Furosemide [Lasix] 40 mg PO DAILY 02/14/17 02/14/17 Potassium Chloride [K-Tab ER] 20 meq PO DAILY 02/14/17 02/14/17 Previous Rx's Medication Instructions Recorded Aspirin Enteric Coated [Aspirin EC] 81 mg PO DAILY #30 tablet. 02/17/17 Allergies Allergy/AdvReac Type Severity Reaction Status Date / Time Penicillins AdvReac foot Verified 08/21/17 14:42 tenderness 50 years ago vancomycin AdvReac See Verified 08/21/17 14:42 Comments Past Medical History - Past Medical History Medical history: Reports: atrial fibrillation, coronary artery disease, GERD, GI bleed, hyperlipidemia, hypertension, thyroid disease, other Surgical history: Reports: appendectomy, cholecystectomy Psychiatric history: Reports: anxiety, depression - Social History Smoking Status: Former smoker Smokeless Tobacco Status: No Alcohol use: Reports: none, occasionally Drug use: Reports: none Physical Exam - General Limitations: no limitations General appearance: alert Course Vital Signs Temperature 99 F 08/21/17 14:43 Pulse Rate 105 08/21/17 14:43 Respiratory Rate 20 08/21/17 14:43 Blood Pressure 157/78 08/21/17 14:43 O2 Sat by Pulse Oximetry 92 08/21/17 14:43 Temperature 99 F 08/21/17 14:43 Pulse Rate 106 08/21/17 17:48 Respiratory Rate 20 08/21/17 15:49 Blood Pressure 142/66 08/21/17 17:48 O2 Sat by Pulse Oximetry 97 08/21/17 17:48 Oxygen Delivery Oxygen Delivery Nasal Cannula Medical Decision Making - Lab Data Result diagrams: 08/21/17 15:02 08/21/17 15:02 Lab Results 08/21/17 08/21/17 08/21/17 Range/Units 15:02 15:02 15:02 WBC 8.1 (4.3-11.1) K/mcL RBC 4.04 L (4.19-5.50) M/mcL Hgb 12.0 L (12.9-16.9) g/dL Hct 36.1 L (37.5-50.1) % MCV 89.4 (83.0-100.0) fL MCH 29.7 (28.0-33.3) pg MCHC 33.2 (31.6-35.5) g/dL RDW 15.5 H (11.5-14.5) % Plt Count 108 L (140-400) K/mcL MPV 10.1 (9.4-12.4) fL Immature Gran % 0.4 (0-4) % Seg Neutrophils % 86.8 % Lymphocytes % 6.3 % Monocytes % 6.0 % Eosinophils % 0.4 % Basophils % 0.1 % Neutrophils # 7.1 (1.6-8.9) K/mcL Lymphocytes # 0.5 L (0.6-4.6) K/mcL Monocytes # 0.5 (0.0-1.3) K/mcL Eosinophils # 0.0 (0.0-0.6) K/mcL Basophils # 0.0 (0.0-0.2) K/mcL PT (9.4-12.1) Seconds INR Sodium 131 L (136-145) mEq/L Potassium 4.6 (3.5-5.1) mEq/L Chloride 96 L (98-107) mEq/L Carbon Dioxide 28 (23-29) mEq/L BUN 23 (8-23) mg/dL Creatinine 0.60 L (0.70-1.30) mg/dL Est GFR ( Amer) > 60 (> 60) Est GFR (Non-Af Amer) > 60 (> 60) BUN/Creatinine Ratio 38 H (6-26) Glucose 152 H (70-105) mg/dL Calculated Osmolality 279 L (280-300) Lactic Acid 1.7 (0.5-2.2) mmol/L Calcium 9.2 (8.6-10.3) mg/dL Troponin I < 0.03 (< 0.04) ng/mL B-Natriuretic Peptide (Less than 100) pg/mL 08/21/17 08/21/17 Range/Units 15:02 15:02 WBC (4.3-11.1) K/mcL RBC (4.19-5.50) M/mcL Hgb (12.9-16.9) g/dL Hct (37.5-50.1) % MCV (83.0-100.0) fL MCH (28.0-33.3) pg MCHC (31.6-35.5) g/dL RDW (11.5-14.5) % Plt Count (140-400) K/mcL MPV (9.4-12.4) fL Immature Gran % (0-4) % Seg Neutrophils % % Lymphocytes % % Monocytes % % Eosinophils % % Basophils % % Neutrophils # (1.6-8.9) K/mcL Lymphocytes # (0.6-4.6) K/mcL Monocytes # (0.0-1.3) K/mcL Eosinophils # (0.0-0.6) K/mcL Basophils # (0.0-0.2) K/mcL PT 14.5 H (9.4-12.1) Seconds INR 1.3 Sodium (136-145) mEq/L Potassium (3.5-5.1) mEq/L Chloride (98-107) mEq/L Carbon Dioxide (23-29) mEq/L BUN (8-23) mg/dL Creatinine (0.70-1.30) mg/dL Est GFR ( Amer) (> 60) Est GFR (Non-Af Amer) (> 60) BUN/Creatinine Ratio (6-26) Glucose (70-105) mg/dL Calculated Osmolality (280-300) Lactic Acid (0.5-2.2) mmol/L Calcium (8.6-10.3) mg/dL Troponin I (< 0.04) ng/mL B-Natriuretic Peptide 166 H (Less than 100) pg/mL Attestation Statement - Attestation Attestation: I, Roni Crews DO, examined this patient [id number] and my medical decision-making was reviewed with Hilario De Los Santos DO, Resident Physician. I agree with the documented findings, disposition and treatment plan as described except to the extent set forth below. Please see my progress notes for details. 77-year-old male presents to the emergency room for evaluation of shortness of breath and productive sputum. Patient has a history of aspiration secondary to esophageal related issues. He has a gastric tube in place to prevent against his problems. Patient denies any chest pain fevers chills nausea vomiting or diarrhea. Denies any headache or vision change. He has had a recent thoracentesis completed within the last several weeks. Denies any dark colored stool or bleeding. He did just completed an antibiotic regimen of Ceftin ear. Patient did describe some dark colored stool during antibiotic regimen but nothing since then. Vital signs remained stable throughout the initial evaluation treatment course. Physical exam is stable. The chest is diminished on the right side with no signs of wheezing. There is no coarse crackles on auscultation. Heart is irregular with atrial fibrillation. Patient's mucous membranes are slightly dry. Oropharynx is patent trachea is midline. Abdomen is soft nontender nondistended no guarding no rigidity no peritoneal symptoms. Lower extremities to +1 pitting edema to the midshin. Masses are intact. Patient neurologically appears to be intact speaking in full sentences answering questions appropriately. Family is with him at the bedside and is concerned about possible aspiration pneumonia versus COPD exacerbation. Patient will be provided with antibiotics steroids. Treatments as needed. Detailed evaluation of blood cultures lactic acid will be ordered. Patient will most likely require admission once full workup and treatment course are established. See detailed documentation of the physical exam, medical intervention, medical decision-making and disposition the resident physician's note. 1700 Patient found to have what appears to be possible loculated area in the right lung. CT imaging of the chest will be completed. Antibiotic have been started. Admission process will be completed. 1800 CT angiography the chest is concerning for right-sided pleural effusion and pneumonia. Antibiotic regimen will be started here with Levaquin. Patient is otherwise clinically stable. Admission process to be completed at this time. No critical care
[2017-08-21] MEDS ORDERED: Levofloxacin 750 MG/150 ML 750 MG/150 ML BAG IVPB ONE (17:40)
--- NOTE | 2017-08-21 18:41 | Emergency Department Note ---
Disposition Clinical Impression: Pleural effusion on right, Shortness of breath, Hypoxia CAP (community acquired pneumonia) Qualifiers: Laterality: right Lung location: lower lobe of lung Qualified Code(s): J18.1 - Lobar pneumonia, unspecified organism Disposition: Admitted As Inpatient Condition: Good Referrals: Davy Holder DO [Primary Care Provider] - Forms: ED Satisfaction Letter General Adult HPI - General Chief complaint: ED Fever Stated complaint: fever/low O2 sats/prod cough thick white sputum Time Seen by Provider: 08/21/17 14:49 Source: patient Limitations: no limitations Nursing Notes Reviewed: Yes Vital Signs Reviewed: Yes - History of Present Illness HPI Narrative: Patient presents today for evaluation of fever and shortness of breath. Patient was at [employer] friend felt overheated. Patient felt as if he had a temperature. Patient states he felt nauseated with some mild weakness. The patient presented to the emergency department after being seen by his family member who did a bedside pulse ox and was found to be 88%. In the emergency permit the patient is 90% without room air. Patient is having concern for rales and some rhonchi in the right sided lung. The patient states that he does have a feeding tube secondary to swallowing difficulties that he has had in the past. Patient has had recurrent pneumonia episodes and has had an effusion drained approximately a year or 2 ago. This had to be re-drained last week for exertional dyspnea symptoms. Patient has had a cough. He states that he is been spitting stuff up but does not have purulent sputum. Pain Scale: 0 - Related Data Home Medications Medication Instructions Recorded Confirmed Allopurinol [Zyloprim] 150 mg PO DAILY 02/13/17 02/14/17 Cefdinir 6 ml PO BID 02/13/17 02/14/17 Levothyroxine [Synthroid] 50 mcg PO 0630 02/13/17 02/14/17 Losartan Potassium [Cozaar] 100 mg PO DAILY 02/13/17 02/14/17 Metoprolol Tartrate [Lopressor] 25 mg PO BID 02/13/17 02/14/17 ALPRAZolam [Xanax 0.5 MG Tablet] 0.5 mg PO BID PRN 02/14/17 02/14/17 Furosemide [Lasix] 40 mg PO DAILY 02/14/17 02/14/17 Potassium Chloride [K-Tab ER] 20 meq PO DAILY 02/14/17 02/14/17 Previous Rx's Medication Instructions Recorded Aspirin Enteric Coated [Aspirin EC] 81 mg PO DAILY #30 tablet. 02/17/17 Allergies Allergy/AdvReac Type Severity Reaction Status Date / Time Penicillins AdvReac foot Verified 08/21/17 14:42 tenderness 50 years ago vancomycin AdvReac See Verified 08/21/17 14:42 Comments Review of Systems: CONSTITUTIONAL: Fever cough weakness and fatigue HEENT: Eyes: No visual changes. Ears, Nose, Throat: No hearing loss, difficulty talking or unable to swallow. SKIN: No rash or itching. CARDIOVASCULAR: No chest pain, chest pressure or chest discomfort. No palpitations or edema. RESPIRATORY: Shortness of breath with exertion GASTROINTESTINAL: No anorexia, nausea, vomiting or diarrhea. No abdominal pain or blood. GENITOURINARY: No burning on urination or hematuria. NEUROLOGICAL: No headache, dizziness, syncope, paralysis, ataxia, numbness or tingling in the extremities. No change in bowel or bladder control. MUSCULOSKELETAL: No muscle pain, back pain, joint pain or stiffness. Past Medical History - Past Medical History Medical history: Reports: atrial fibrillation, coronary artery disease, GERD, GI bleed, hyperlipidemia, hypertension, thyroid disease, other Surgical history: Reports: appendectomy, cholecystectomy Psychiatric history: Reports: anxiety, depression - Social History Smoking Status: Former smoker Smokeless Tobacco Status: No Alcohol use: Reports: none, occasionally Drug use: Reports: none Physical Exam General: Well appearing, nontoxic, no acute distress Head: Normocephalic Atraumatic Eyes: PERRL, EOMI ENT: Airway patent, no stridor Neck: supple, no meningismus Chest: Rales and rhonchi to the right side Cardiac: Regular rate and rhythm, no murmurs, rubs or gallops Abdomen: soft, nontender, nondistended; no guarding, rebound, or tenderness to percussion Musculoskeletal: Calves symmetric, nontender, no palpable cord Skin: No rash, normal skin tone Neuro: Alert and Oriented to person, place, and time; No focal deficit, - General Limitations: no limitations General appearance: alert Course - Reevaluation(s) Reevaluation #1: Patient concern for loculated effusion. To rule out empyema. CT scan ordered. CT scan with concern for right middle lobe pneumonia as well as chronic changes to the lower lobe. Patient placed on Levaquin. Patient does have a feeding tube secondary to aspiration but has not had any by mouth food, fluids, or medications. Vital Signs Temperature 99 F 08/21/17 14:43 Pulse Rate 105 08/21/17 14:43 Respiratory Rate 20 08/21/17 14:43 Blood Pressure 157/78 08/21/17 14:43 O2 Sat by Pulse Oximetry 92 08/21/17 14:43 Temperature 99 F 08/21/17 14:43 Pulse Rate 95 08/21/17 18:54 Respiratory Rate 20 08/21/17 18:54 Blood Pressure 120/75 08/21/17 18:54 O2 Sat by Pulse Oximetry 97 08/21/17 18:54 Oxygen Delivery Oxygen Delivery Nasal Cannula Medical Decision Making - Medical Records Medical records reviewed: Yes I reviewed the patient's medical records. - Lab Data Lab results reviewed: Yes I reviewed the patient's lab results. Result diagrams: 08/21/17 15:02 08/21/17 15:02 Lab Results 08/21/17 08/21/17 08/21/17 Range/Units 15:02 15:02 15:02 WBC 8.1 (4.3-11.1) K/mcL RBC 4.04 L (4.19-5.50) M/mcL Hgb 12.0 L (12.9-16.9) g/dL Hct 36.1 L (37.5-50.1) % MCV 89.4 (83.0-100.0) fL MCH 29.7 (28.0-33.3) pg MCHC 33.2 (31.6-35.5) g/dL RDW 15.5 H (11.5-14.5) % Plt Count 108 L (140-400) K/mcL MPV 10.1 (9.4-12.4) fL Immature Gran % 0.4 (0-4) % Seg Neutrophils % 86.8 % Lymphocytes % 6.3 % Monocytes % 6.0 % Eosinophils % 0.4 % Basophils % 0.1 % Neutrophils # 7.1 (1.6-8.9) K/mcL Lymphocytes # 0.5 L (0.6-4.6) K/mcL Monocytes # 0.5 (0.0-1.3) K/mcL Eosinophils # 0.0 (0.0-0.6) K/mcL Basophils # 0.0 (0.0-0.2) K/mcL PT (9.4-12.1) Seconds INR Sodium 131 L (136-145) mEq/L Potassium 4.6 (3.5-5.1) mEq/L Chloride 96 L (98-107) mEq/L Carbon Dioxide 28 (23-29) mEq/L BUN 23 (8-23) mg/dL Creatinine 0.60 L (0.70-1.30) mg/dL Est GFR ( Amer) > 60 (> 60) Est GFR (Non-Af Amer) > 60 (> 60) BUN/Creatinine Ratio 38 H (6-26) Glucose 152 H (70-105) mg/dL Calculated Osmolality 279 L (280-300) Lactic Acid 1.7 (0.5-2.2) mmol/L Calcium 9.2 (8.6-10.3) mg/dL Troponin I < 0.03 (< 0.04) ng/mL B-Natriuretic Peptide (Less than 100) pg/mL 08/21/17 08/21/17 Range/Units 15:02 15:02 WBC (4.3-11.1) K/mcL RBC (4.19-5.50) M/mcL Hgb (12.9-16.9) g/dL Hct (37.5-50.1) % MCV (83.0-100.0) fL MCH (28.0-33.3) pg MCHC (31.6-35.5) g/dL RDW (11.5-14.5) % Plt Count (140-400) K/mcL MPV (9.4-12.4) fL Immature Gran % (0-4) % Seg Neutrophils % % Lymphocytes % % Monocytes % % Eosinophils % % Basophils % % Neutrophils # (1.6-8.9) K/mcL Lymphocytes # (0.6-4.6) K/mcL Monocytes # (0.0-1.3) K/mcL Eosinophils # (0.0-0.6) K/mcL Basophils # (0.0-0.2) K/mcL PT 14.5 H (9.4-12.1) Seconds INR 1.3 Sodium (136-145) mEq/L Potassium (3.5-5.1) mEq/L Chloride (98-107) mEq/L Carbon Dioxide (23-29) mEq/L BUN (8-23) mg/dL Creatinine (0.70-1.30) mg/dL Est GFR ( Amer) (> 60) Est GFR (Non-Af Amer) (> 60) BUN/Creatinine Ratio (6-26) Glucose (70-105) mg/dL Calculated Osmolality (280-300) Lactic Acid (0.5-2.2) mmol/L Calcium (8.6-10.3) mg/dL Troponin I (< 0.04) ng/mL B-Natriuretic Peptide 166 H (Less than 100) pg/mL - Radiology Data Radiology results reviewed: Yes I reviewed the patient's radiology results. - EKG Data EKG #1 EKG attestation: Yes I reviewed and interpreted this EKG. EKG results narrative: atrialfib 113; shw264, qtc 398;anterior T-wave changes consistent with previous ekg of 03/29/2017. Attestation Statement - Attestation Attestation: I, Roni Crews DO, examined this patient [id number] and my medical decision-making was reviewed with Hilario De Los Santos DO, Resident Physician. I agree with the documented findings, disposition and treatment plan as described except to the extent set forth below. Please see my progress notes for details.
--- NOTE | 2017-08-21 19:33 | Internal Med History&Physical ---
Date of Encounter: 08/22/17 Internal Medicine - H&P: HPI Chief complaint: sob History of present illness: Mr. Perez is a 77 year old male with pmh of recurrent pneumonia episodes associated with effusion that was drained approximately a year or 2 ago and was also drained last week for exertional dyspnea symptoms who present presents today for evaluation of fever and shortness of breath associated with productive cough and of 88% at home. In the emergency permit the patient is Spo2 is 90% without room air. CT scan of the chest revealed right middle lobe pneumonia as well as chronic changes to the lower lobe. The patient also have a feeding tube secondary to aspiration. Past Med Surg Social Fam HX - Past Medical History Medical history: atrial fibrillation, coronary artery disease, GERD, GI bleed, hyperlipidemia, hypertension, thyroid disease, other Psychiatric history: anxiety, depression - Past Surgical History Surgical History: appendectomy, cholecystectomy - Social History Smoking Status: Former smoker Smokeless Tobacco Status: No Alcohol use: none, occasionally Drug use: none - Family History Father Living Status: Hx Family Cardiac Disorders: Yes Hx Family Respiratory Disorders: (TB) Hx Family Cancer: Yes (prostate) Mother Living Status: Hx Family Cardiac Disorders: Yes (HTN) Hx Family Respiratory Disorders: No Hx Family Cancer: No Hx Family GI Disorders: No Hx Family Endocrine Disorder: No Hx Family Neuromuscular Disorders: No Hx Family Neurologic Disorders: Yes (Alzeimers) Hx Family HEENT Disorders: No Hx Family Autoimmune Disorders: No Internal Medicine - H&P: Meds Levothyroxine [Synthroid] 50 mcg PO 0630 02/13/17 [History] Losartan Potassium [Cozaar] 100 mg PO DAILY 02/13/17 [History] Metoprolol Tartrate [Lopressor] 12.5 mg PO DAILY 02/13/17 [History] ALPRAZolam [Xanax 0.5 MG Tablet] 0.5 mg PO HS 02/14/17 [History] Aspirin [Adult Aspirin Regimen] 81 mg PO HS 08/21/17 [History] Potassium Chloride Elixir [Potassium Chloride] 20 meq GTUBE DAILY 08/21/17 [ History] 3 Allergy/AdvReac Type Severity Reaction Status Date / Time Penicillins AdvReac foot Verified 08/21/17 14:42 tenderness 50 years ago vancomycin AdvReac See Verified 08/21/17 14:42 Comments All Systems PM: A 10-system review of systems was performed and is negative for pertinent findings except as documented above in the HPI. - Constitutional Constitutional: no chills, no fever(s), no night sweats - Cardiovascular Cardiovascular ROS IM: dyspnea, no chest pain, no diaphoresis, no lightheadedness, no palpitations, no syncope - Respiratory Respiratory: no cough, no dyspnea, no wheezing, no excessive phlegm production - Gastrointestinal Gastrointestinal: no abdominal pain, no diarrhea, no hematemesis, no hematochezia, no melena, no nausea, no vomiting - Integumentary Integumentary IM: no rash, no unusual bruising - Constitutional Vitals: Temp Pulse Resp BP Pulse Ox 99 F 95 20 120/75 97 08/21/17 14:43 08/21/17 18:54 08/21/17 18:54 08/21/17 18:54 08/21/17 18:54 Internal Med - H&P Results - Labs CBC & Chem 7: 08/21/17 15:02 08/22/17 02:16 Labs: Short CBC 08/21/17 Range/Units 15:02 WBC 8.1 (4.3-11.1) K/mcL Hgb 12.0 L (12.9-16.9) g/dL Hct 36.1 L (37.5-50.1) % Plt Count 108 L (140-400) K/mcL Neutrophils # 7.1 (1.6-8.9) K/mcL BMP 08/21/17 15:02 Sodium 131 L Potassium 4.6 Chloride 96 L Carbon Dioxide 28 BUN 23 Creatinine 0.60 L Glucose 152 H Calcium 9.2 Cardiac Enzymes 08/21/17 Range/Units 15:02 Troponin I < 0.03 (< 0.04) ng/mL - Impressions ITS Impressions Chest X-Ray 08/21/17 15:01 IMPRESSION: [id number] partially loculated right-sided pleural effusion, slightly increased in size from prior exam. There is associated basilar atelectasis and/or consolidation. D/ / 08/21/2017 15:28:18 Dameon Paige MD / [facility] Interpreting Provider: Dameon Paige MD Chest CTA 05/20/18 16:40 IMPRESSION: Chronic [id number]-[id number] right pleural effusion; right basilar consolidation is again noted, particularly in the right lower lobe which is likely chronic. There is slightly increased right middle lobe consolidation. Correlation for pneumonia is recommended. No CT evidence of pulmonary embolism. Consolidation of the right middle lobe. Correlation D/ / Jessica Saavedra Cha, MD / Jessica Saavedra Cha, MD Interpreting Provider: Jessica Saavedra Cha, MD - Assessment and plan (1) CAP (community acquired pneumonia) Current Visit: Yes Status: Acute Assessment and plan: ASSESSMENT: - SOB due to *Pneumonia Previous ABx Tx- , Structural lung disease- - Blood Cx - Urine Legionella antigen - Antibiotics - CBCD, CMP in AM - Tylenol 650 mg PO q 4-6 hr PRN pain or fever - Home meds - check the list and restart accordingly - Heparin 5000 U SQ BID Qualifiers: Laterality: right Lung location: lower lobe of lung Qualified Code(s): J18.1 - Lobar pneumonia, unspecified organism (2) Pleural effusion on right Current Visit: Yes Status: Acute Assessment and plan: We will consult pulmonary for further management (3) DVT prophylaxis Current Visit: No Status: Acute Assessment and plan: SC heparin (4) Dysphagia Current Visit: No Status: Acute Assessment and plan: Patient does have a feeding tube secondary to aspiration Qualifiers: Dysphagia type: pharyngoesophageal phase Qualified Code(s): R13.14 - Dysphagia, pharyngoesophageal phase (5) Chronic anemia Current Visit: No Status: Chronic Assessment and plan: Hgb is stable, cont to monitor (6) Atrial fibrillation Current Visit: No Status: Chronic Assessment and plan: Rate is controlled , cont meds Qualifiers: Atrial fibrillation type: paroxysmal Qualified Code(s): I48.0 - Paroxysmal atrial fibrillation (7) Hyponatremia Current Visit: Yes Status: Acute Assessment and plan: Hypovolumic 2/2 volume depletion , starting hydration with isotonic saline (8) Hypothyroidism Current Visit: No Status: Chronic Assessment and plan: cont home thyroxin Qualifiers: Hypothyroidism type: acquired Qualified Code(s): E03.9 - Hypothyroidism, unspecified - Time Spent With Patient Total time spent is greater than 50% in coordination of care (as documented) at patient's floor/unit and/or counseling patient:
[2017-08-21] MEDS ORDERED: Acetaminophen 325 MG TABLET PO PRN (19:58)
[2017-08-21] MEDS ORDERED: Naloxone 0.4 MG/ML INJ IVP PRN (19:58)
[2017-08-21] MEDS ORDERED: ALPRAZolam 0.5 MG TABLET PO ONE (22:12)
[2017-08-21] MEDS: 0.9 % Sodium Chloride 1,000 ML IVC SCH (22:40)
[2017-08-22 02:54] LABS: Alanine Aminotransferase 22 Units/L (7-52); Albumin 3.1 g/dL (3.5-5.7); Albumin/Globulin Ratio 1.1 (1.1-2.2); Alkaline Phosphatase 118 Units/L (34-104); Aspartate Amino Transferase 30 Units/L (13-39); BUN/Creatinine Ratio 40 (6-26); Bilirubin,Total 1.3 mg/dL (0.3-1.0); Blood Urea Nitrogen 22 mg/dL (8-23); Calcium 8.5 mg/dL (8.6-10.3); Carbon Dioxide 27 mEq/L (23-29); Chloride 99 mEq/L (98-107); Chol/HDL Ratio 3.3 (0-4.9); Cholesterol 80 mg/dL (< 200); Globulin 2.8 g/dL (2.4-3.5); Glucose 100 mg/dL (70-105); HDL Cholesterol 24 mg/dL (40-59); INR 1.5; LDL Cholesterol,Calculated 44 mg/dL (0-99); Osmolality,Calculated 273 (280-300); Phosphorous 2.7 mg/dL (2.7-4.5); Potassium 4.3 mEq/L (3.5-5.1); Prothrombin Time 16.2 Seconds (9.4-12.1); Sodium 130 mEq/L (136-145); Total Protein 5.9 g/dL (6.4-8.9); Triglycerides 59 mg/dL (< 150); eGFR For African Americans > 60 (> 60); eGFR For Non-African Americans > 60 (> 60)
[2017-08-22 02:57] LABS: Activated Partial Thrombo Time 31.7 Seconds (26.0-36.0)
[2017-08-22] MEDS ORDERED: Levofloxacin 750 MG/150 ML 750 MG/150 ML BAG IVPB SCH (09:00)
[2017-08-22] MEDS: Potassium Chloride Elixir 20 MEQ/15 ML UDC GTUBE SCH (09:49)
[2017-08-22] MEDS: 0.9 % Sodium Chloride 1,000 ML IVC SCH (13:07)
--- NOTE | 2017-08-22 13:56 | Internal Med Progress Note ---
Date of Encounter: 08/22/17 Time of Encounter: 08:50 - Assessment and plan (1) CAP (community acquired pneumonia) Current Visit: Yes Status: Acute Assessment and plan: Acute right middle lobe pneumonia. Patient is on tube feeds. Concern for aspiration. Currently on Levaquin. Will add Flagyl. WBC count is normal. Will continue intravenous antibiotics. Follow blood cultures. If blood cultures remain negative, may consider changing to oral antibiotics tomorrow. Qualifiers: Laterality: right Lung location: middle lobe of lung Qualified Code(s): J18.1 - Lobar pneumonia, unspecified organism (2) Pleural effusion on right Current Visit: Yes Status: Acute Assessment and plan: Moderate to large pleural effusion on the right. Chronic. Patient underwent thoracentesis last week. Given that he is fairly asymptomatic at this time, no urgent indication for thoracentesis as this appears to be chronic pleural effusion. If however he becomes symptomatic, may consider thoracentesis (3) Atrial fibrillation Current Visit: No Status: Chronic Assessment and plan: Rate controlled at this time. Continue metoprolol. Dosage has been decreased to 12.5 mg once daily due to low normal blood pressure. We will monitor for now. Currently does not appear to be on anticoagulation. Likely due to recent history of GI bleeding. Continue monitoring heart rate. Qualifiers: Atrial fibrillation type: paroxysmal Qualified Code(s): I48.0 - Paroxysmal atrial fibrillation (4) Hypothyroidism Current Visit: No Status: Chronic Assessment and plan: Continue levothyroxine Qualifiers: Hypothyroidism type: acquired Qualified Code(s): E03.9 - Hypothyroidism, unspecified (5) Dysphagia Current Visit: Yes Status: Chronic Assessment and plan: Patient on tube feeds. Keep nothing by mouth and continue tube feeds. Aspiration precautions. Qualifiers: Dysphagia type: pharyngoesophageal phase Qualified Code(s): R13.14 - Dysphagia, pharyngoesophageal phase (6) Chronic anemia Current Visit: No Status: Chronic Assessment and plan: Stable blood counts. Hemoglobin 12 at this time. (7) Hyponatremia Current Visit: Yes Status: Chronic Assessment and plan: Likely chronic hyponatremia. Sodium 130. No improvement despite IV saline infusion. Will stop IV fluids. Will recheck sodium levels. (8) DVT prophylaxis Current Visit: Yes Status: Acute Assessment and plan: With subcutaneous heparin - Time Spent With Patient Total time spent is greater than 50% in coordination of care (as documented) at patient's floor/unit and/or counseling patient: - Subjective Interval history: Patient is feeling much better today. Currently on room air. Overnight. No fever reported overnight. No chest pain. - Constitutional Vitals: Temp Pulse Resp BP Pulse Ox 97.6 F 75 16 108/63 94 08/22/17 10:28 08/22/17 10:28 08/22/17 10:28 08/22/17 10:28 08/22/17 10:28 General appearance: Present: cooperative, A&O X 3, answers questions appropriately - Neck Neck exam general surgery: Present: supple, trachea midline. Absent: lymphadenopathy - Respiratory Respiratory exam: Present: decreased breath sounds (Right base). Absent: accessory muscle use, rales, rhonchi, wheezes - Cardiovascular Cardiovascular exam: Present: RRR, +S1, +S2. Absent: diastolic murmur, gallop, rubs, systolic murmur - GI/Abdominal GI/Abdominal exam: Present: normal bowel sounds, soft, no peritoneal signs. Absent: distended, tenderness - Extremities Exam Extremities exam: Present: warm, radial pulses palpable and symmetrical. Absent : calf tenderness, cyanotic, pedal edema - Neurological Exam Neurological exam: Present: CN II-XII intact, oriented X3, no focal deficits. Absent: facial droop, speech deficit Internal Medicine: Result - Labs CBC & Chem 7: 08/21/17 15:02 08/22/17 02:16 Labs: BMP 08/22/17 02:16 Sodium 130 L Potassium 4.3 Chloride 99 Carbon Dioxide 27 BUN 22 Creatinine 0.55 L Glucose 100 Calcium 8.5 L Cardiac Enzymes 08/21/17 08/22/17 08/22/17 Range/Units 21:25 02:16 08:22 Troponin I < 0.03 < 0.03 < 0.03 (< 0.04) ng/mL Liver Function 08/22/17 Range/Units 02:16 Total Bilirubin 1.3 H (0.3-1.0) mg/dL AST 30 (13-39) Units/L ALT 22 (7-52) Units/L Alkaline Phosphatase 118 H (34-104) Units/L Albumin 3.1 L (3.5-5.7) g/dL - ABG Interpretation ABG results: PT/INR, D-dimer PT 16.2 Seconds (9.4-12.1) H 08/22/17 02:16 - VTE Documentation of Mechanical Device: Intermittent pneumatic compression device Consult Discharge Plan - Plan Referrals: Davy Holder DO [Primary Care Provider] -
--- NOTE | 2017-08-22 14:06 | Electrocardiograph Report ---
[place] [id number] Test Date: 2017-08-21 Pat Name: Sean Perez Department: 103 Room: 3A13 Gender: M Assistant: MSC : [id number] Requested By: [id number] Order Number: [id number] Reading MD: Helena Britt Measurements Intervals [place] Rate: 113 P: TN: 0 QRS: 104 QRSD: 112 T: -7 QT: 331 QTc: 398 Interpretive Statements ATRIAL FIBRILLATION WITH RAPID VENTRICULAR RESPONSE RIGHT BUNDLE BRANCH BLOCK [120+ ms QRS DURATION, UPRIGHT V1, 40+ ms S IN I/aVL/V4/V5/V6] Electronically Signed On 08-22-2017 14:05:02 EDT by Helena Britt
[2017-08-22] MEDS: MetroNIDAZOLE 500 MG/100 ML 500 MG/100 ML BAG IVPB SCH ×2 (15:47→23:20)
[2017-08-22] MEDS ORDERED: *HR* Heparin 5,000 UNIT/ML VIAL SQ SCH ×2 (18:00)
[2017-08-22] MEDS ORDERED: Aspirin Enteric Coated 81 MG Tablet PO SCH (21:00)
[2017-08-22] MEDS: ALPRAZolam 0.5 MG TABLET PO SCH (21:03)
[2017-08-22] MEDS: Aspirin 81 MG TAB.CHEW GTUBE SCH (21:03)
[2017-08-22 21:31] LABS: Bilirubin,Urine Negative (Negative); Blood,Urine Trace (Negative); Clarity,Urine Clear (Clear); Color,Urine Yellow (Yellow); Glucose,Urine (UA) Normal (Normal); Ketones,Urine Negative (Negative); Leukocyte Esterase,Urine Negative (Negative); Nitrite,Urine Negative (Negative); Protein,Urine Trace mg/dL (Neg-Trace); Specific Gravity,Urine 1.023 (1.010-1.025); Urobilinogen,Urine Normal (Normal)
[2017-08-22 21:35] LABS: Hyaline Casts,Urine None Seen per lpf (None-Few); RBC,Urine 0-3 per hpf (0-3); Squamous Epithelial Cell,Urine Few per lpf (None-Few); WBC,Urine 0-3 per hpf (0-3)
[2017-08-22 21:44] LABS: Bacteria,Urine Few per hpf (None-Few)
[2017-08-23 04:42] LABS: Eosinophils % 2.7 %; Hematocrit 31.3 % (37.5-50.1); Immature Granulocytes % 0.8 % (0-4)
[2017-08-23 04:45] LABS: Basophils % 0.4 %; Eosinophils # 0.1 K/mcL (0.0-0.6); Hemoglobin 10.5 g/dL (12.9-16.9); Immature Platelets 2.4 % (1.1-6.1); Lymphocytes # 0.6 K/mcL (0.6-4.6); Lymphocytes % 12.2 %; Mean Corpuscular HGB Conc 33.5 g/dL (31.6-35.5); Mean Corpuscular Hemoglobin 30.4 pg (28.0-33.3); Mean Corpuscular Volume 90.7 fL (83.0-100.0); Mean Platelet Volume 10.3 fL (9.4-12.4); Monocytes # 0.5 K/mcL (0.0-1.3); Neutrophils # 3.8 K/mcL (1.6-8.9); Red Blood Count 3.45 M/mcL (4.19-5.50); Red Cell Distribution Width 15.5 % (11.5-14.5); Segmented Neutrophils % 73.9 %
[2017-08-23 04:46] LABS: Platelet Count 92 K/mcL (140-400)
[2017-08-23 05:06] LABS: BUN/Creatinine Ratio 35 (6-26); Blood Urea Nitrogen 19 mg/dL (8-23); Calcium 8.6 mg/dL (8.6-10.3); Carbon Dioxide 27 mEq/L (23-29); Chloride 99 mEq/L (98-107); Glucose 99 mg/dL (70-105); Osmolality,Calculated 274 (280-300); Potassium 4.3 mEq/L (3.5-5.1); Sodium 131 mEq/L (136-145); eGFR For African Americans > 60 (> 60); eGFR For Non-African Americans > 60 (> 60)
[2017-08-23] MEDS ORDERED: *HR* Enoxaparin 40 MG/0.4 ML SYRINGE SQ SCH (06:00)
--- NOTE | 2017-08-23 08:01 | Internal Med Progress Note ---
Date of Encounter: 08/23/17 Time of Encounter: 07:59 - Assessment and plan (1) Pleural effusion on right Current Visit: Yes Status: Acute Assessment and plan: Moderate to large pleural effusion on the right. Chronic. Patient underwent thoracentesis last week. Given that he is fairly asymptomatic at this time, no urgent indication for thoracentesis as this appears to be chronic pleural effusion. If however he becomes symptomatic, may consider thoracentesis. Patient remains asymptomatic. Patient may need Pulm consult here or as outpatient. (2) Atrial fibrillation Current Visit: No Status: Chronic Assessment and plan: Rate controlled at this time. Continue metoprolol. Dosage has been decreased to 12.5 mg once daily due to low normal blood pressure. Due to recent history of GI bleeding patient not on anticoagulation. Of note INR is elevated without anticoag medications. Suggested outpatient follow-up.. Seen on prior labs, however. Heart rate has remained under control today and yesterday DC telemetry monitoring. Qualifiers: Atrial fibrillation type: paroxysmal Qualified Code(s): I48.0 - Paroxysmal atrial fibrillation (3) CAP (community acquired pneumonia) Current Visit: Yes Status: Acute Assessment and plan: Acute right middle lobe pneumonia. Patient is on tube feeds. Concern for aspiration. Currently on Levaquin. Will add Flagyl. WBC count is normal. Will continue intravenous antibiotics. Follow blood cultures. Blood cultures remained negative Switch to PO today. Qualifiers: Laterality: right Lung location: middle lobe of lung Qualified Code(s): J18.1 - Lobar pneumonia, unspecified organism (4) Hypothyroidism Current Visit: No Status: Chronic Assessment and plan: Continue levothyroxine Qualifiers: Hypothyroidism type: acquired Qualified Code(s): E03.9 - Hypothyroidism, unspecified (5) Dysphagia Current Visit: Yes Status: Chronic Assessment and plan: Patient on tube feeds. Keep nothing by mouth and continue tube feeds. Aspiration precautions. Qualifiers: Dysphagia type: pharyngoesophageal phase Qualified Code(s): R13.14 - Dysphagia, pharyngoesophageal phase (6) Chronic anemia Current Visit: No Status: Chronic Assessment and plan: Hemoglobin 12 and today is 10. Patient has known history and follows up in outpatient because of this. No signs of bleeding from patient. Denies hematochezia, melena, hematemesis. (7) Hyponatremia Current Visit: Yes Status: Chronic Assessment and plan: Likely chronic hyponatremia. No improvement despite IV saline infusion. IV fluids stopped. (8) Elevated INR Current Visit: Yes Status: Acute Assessment and plan: not on any anticoagulants. Patient denies any excessive use of APAP or other hepatotoxic medications. LFTs taken during this admission unremarkable. Recommend OP follow-up. (9) Thrombocytopenia Current Visit: No Status: Chronic Assessment and plan: Patient and spouse told me that this is been workup up in [facility] for past two years. No intervention required at this moment. Recommended outpatient followup. (10) DVT prophylaxis Current Visit: Yes Status: Acute Assessment and plan: DC heparin/Lovenox as patient is having drop in platelets and also ambulating more. - Time Spent With Patient Total time spent is greater than 50% in coordination of care (as documented) at patient's floor/unit and/or counseling patient: - Subjective Interval history: No acute events. Patient states he is feeling fair, and shortness of breath is much better than on admission. Denies fevers. - Constitutional Vitals: Temp Pulse Resp BP Pulse Ox 97.9 F 79 15 132/76 96 08/23/17 07:20 08/23/17 07:20 08/23/17 07:20 08/23/17 07:20 08/23/17 07:20 General appearance: Present: cooperative, A&O X 3, answers questions appropriately - Head Head exam: Present: atraumatic, normocephalic - Eye Eye exam: Present: PERRL, conjuntiva pink, sclera anicteric Pupils: Present: PERRL - Neck Neck exam general surgery: Present: supple, trachea midline. Absent: lymphadenopathy - Respiratory Respiratory exam: Present: CTAB. Absent: accessory muscle use, rales, rhonchi, wheezes - Cardiovascular Cardiovascular exam: Present: RRR, +S1, +S2. Absent: diastolic murmur, gallop, rubs, systolic murmur - GI/Abdominal GI/Abdominal exam: Present: normal bowel sounds, soft, no peritoneal signs. Absent: distended, tenderness - Extremities Exam Extremities exam: Present: warm, radial pulses palpable and symmetrical. Absent : calf tenderness, cyanotic, pedal edema - Neurological Exam Neurological exam: Present: CN II-XII intact, oriented X3, no focal deficits. Absent: pronater drift, facial droop, speech deficit - Skin Skin exam: Present: dry, intact - Other Additional findings: PEG tube in place, clean Internal Medicine: Result - Labs CBC & Chem 7: 08/23/17 03:49 08/23/17 03:49 Labs: Short CBC 08/23/17 Range/Units 03:49 WBC 5.1 (4.3-11.1) K/mcL Hgb 10.5 L D (12.9-16.9) g/dL Hct 31.3 L (37.5-50.1) % Plt Count 92 L (140-400) K/mcL Neutrophils # 3.8 (1.6-8.9) K/mcL BMP 08/23/17 03:49 Sodium 131 L Potassium 4.3 Chloride 99 Carbon Dioxide 27 BUN 19 Creatinine 0.54 L Glucose 99 Calcium 8.6 Cardiac Enzymes 08/22/17 Range/Units 08:22 Troponin I < 0.03 (< 0.04) ng/mL Urine 08/22/17 Range/Units 21:05 Urine Color Yellow (Yellow) Urine Clarity Clear (Clear) Urine pH 7.0 (5.0-8.0) pH Units Ur Specific [place] 1.023 (1.010-1.025) Urine Protein Trace (Neg-Trace) mg/dL Urine Glucose (UA) Normal (Normal) mg/dL - ABG Interpretation ABG results: PT/INR, D-dimer PT 16.2 Seconds (9.4-12.1) H 08/22/17 02:16 - VTE Documentation of Mechanical Device: Intermittent pneumatic compression device Consult Discharge Plan - Plan Referrals: Davy Holder DO [Primary Care Provider] -
[2017-08-23] MEDS: levoFLOXacin 750 MG TABLET PO SCH (08:22)
[2017-08-23] MEDS: metroNIDAZOLE 500 MG TABLET PO SCH ×3 (08:22→22:06)
[2017-08-23] MEDS: Potassium Chloride Elixir 20 MEQ/15 ML UDC GTUBE SCH (08:23)
[2017-08-23] MEDS: Aspirin 81 MG TAB.CHEW GTUBE SCH (22:06)
[2017-08-23] MEDS: ALPRAZolam 0.5 MG TABLET PO SCH (22:06)
[2017-08-24 05:26] LABS: Basophils % 0.4 %; Hematocrit 30.9 % (37.5-50.1); Hemoglobin 10.5 g/dL (12.9-16.9)
[2017-08-24 05:28] LABS: Eosinophils # 0.1 K/mcL (0.0-0.6); Eosinophils % 1.9 %; Immature Granulocytes % 1.1 % (0-4); Immature Platelets 2.3 % (1.1-6.1); Lymphocytes # 0.6 K/mcL (0.6-4.6); Lymphocytes % 13.8 %; Mean Corpuscular Hemoglobin 30.8 pg (28.0-33.3); Mean Corpuscular Volume 90.6 fL (83.0-100.0); Mean Platelet Volume 10.5 fL (9.4-12.4); Monocytes # 0.5 K/mcL (0.0-1.3); Monocytes % 9.7 %; Neutrophils # 3.4 K/mcL (1.6-8.9); Red Blood Count 3.41 M/mcL (4.19-5.50); Red Cell Distribution Width 15.5 % (11.5-14.5); Segmented Neutrophils % 73.1 %
[2017-08-24 05:31] LABS: Platelet Count 88 K/mcL (140-400)
[2017-08-24 05:48] LABS: BUN/Creatinine Ratio 37 (6-26); Blood Urea Nitrogen 19 mg/dL (8-23); Calcium 8.6 mg/dL (8.6-10.3); Carbon Dioxide 27 mEq/L (23-29); Chloride 101 mEq/L (98-107); Glucose 88 mg/dL (70-105); Osmolality,Calculated 278 (280-300); Potassium 4.1 mEq/L (3.5-5.1); Sodium 133 mEq/L (136-145); eGFR For African Americans > 60 (> 60); eGFR For Non-African Americans > 60 (> 60)
[2017-08-24 06:35] VITALS: BP 134/79
--- NOTE | 2017-08-24 07:43 | Discharge Summary ---
- NOTES TO OUTPATIENT PROVIDER Notes to Outpatient Provider: - Follow-up with Pulmonology is being arranged at time of discharge. Having chronic moderate to large pleural effusion and recurrent pneumonia. Date of Encounter: 08/24/17 Time of Encounter: 07:41 - Discharge Diagnosis (1) CAP (community acquired pneumonia) Priority: Primary Status: Acute Qualifiers: Laterality: right Lung location: middle lobe of lung Qualified Code(s): J18.1 - Lobar pneumonia, unspecified organism (2) Pleural effusion on right Priority: Secondary Status: Acute (3) Atrial fibrillation Priority: Secondary Status: Chronic Qualifiers: Atrial fibrillation type: paroxysmal Qualified Code(s): I48.0 - Paroxysmal atrial fibrillation (4) Hypothyroidism Priority: Secondary Status: Chronic Qualifiers: Hypothyroidism type: acquired Qualified Code(s): E03.9 - Hypothyroidism, unspecified (5) Dysphagia Priority: Secondary Status: Chronic Qualifiers: Dysphagia type: pharyngoesophageal phase Qualified Code(s): R13.14 - Dysphagia, pharyngoesophageal phase (6) Chronic anemia Priority: Secondary Status: Chronic (7) Hyponatremia Priority: Secondary Status: Chronic (8) Elevated INR Priority: Secondary Status: Acute (9) Thrombocytopenia Priority: Secondary Status: Chronic (10) DVT prophylaxis Priority: Secondary Status: Acute Hospital course: Mr. Perez is a 77 year old male with pmh of recurrent pneumonia episodes associated with effusion that was drained approximately a year or 2 ago and was also drained last week for exertional dyspnea symptoms who present presents today for evaluation of fever and shortness of breath associated with productive cough and of 88% at home. In the emergency permit the patient is Spo2 is 90% without room air. CT scan of the chest revealed right middle lobe pneumonia as well as chronic changes to the lower lobe. The patient also have a feeding tube secondary to aspiration. He was admitted for further treatment. He was started on Levaquin and Flagyl. Blood cultures were obtained and negative. patient was afebrile and had no signs of sepsis. He was transitioned to oral Levaquin/Flagyl. He tolerated after monitoring. Patient pleural effusion seen on CT but it is noted that he is asymptomatic and after treatment of pneumonia his oxygenation returned to normal. Patient had thrombocytopenia and tells me that this is known and he has seen Oncology for this. He had elevated INR but reviewing old labs this is similar to prior labs. Patient was ambulating in hallways without issue. He remained afebrile. Patient was discharged home in stable condition. Developing Machine Operator is arranging for Pulmonology outpatient visit in regards to pleural effusion and recurrent pneumonia. Also suggested to follow-up with Oncology again. - Time Spent with Patient Total time spent providing and/or coordinating discharge services: - Discharge Medications Prescriptions: levoFLOXacin [Levaquin] 750 mg GTUBE DAILY 7 Days #7 tablet metroNIDAZOLE [Flagyl] 500 mg GTUBE TID 7 Days #21 tablet Home Medications: Levothyroxine [Synthroid] 50 mcg PO 0630 02/13/17 [History] Losartan Potassium [Cozaar] 100 mg PO DAILY 02/13/17 [History] Metoprolol Tartrate [Lopressor] 12.5 mg PO BID 02/13/17 [History] ALPRAZolam [Xanax 0.5 MG Tablet] 0.5 mg PO HS 02/14/17 [History] Aspirin [Adult Aspirin Regimen] 81 mg PO HS 08/21/17 [History] Potassium Chloride Elixir [Potassium Chloride] 20 meq GTUBE DAILY 08/21/17 [ History] levoFLOXacin [Levaquin] 750 mg GTUBE DAILY 7 Days #7 tablet 08/24/17 [Rx] metroNIDAZOLE [Flagyl] 500 mg GTUBE TID 7 Days #21 tablet 08/24/17 [Rx] Allergies/Adverse Reactions: 3 Allergy/AdvReac Type Severity Reaction Status Date / Time Penicillins AdvReac foot Verified 08/21/17 14:42 tenderness 50 years ago vancomycin AdvReac See Verified 08/21/17 14:42 Comments Date of admission: 08/21/17 20:05 Primary care physician: Kait Shrestha Consults: 08/21/17 21:31 Consult to Nutrition [CONS] Routine Comment: Consulting Provider: NUTRITION Reason for Dietary Consult: Other Other:: PEG tube Discharging clinician: Collin Christensen - Constitutional Vitals: Temp Pulse Resp BP Pulse Ox 97.6 F 83 16 134/79 97 08/24/17 06:34 08/24/17 06:34 08/24/17 06:34 08/24/17 06:34 08/24/17 06:34 General appearance: Present: cooperative, A&O X 3, answers questions appropriately - Head Head exam: Present: atraumatic, normocephalic - Eye Eye exam: Present: PERRL, conjuntiva pink, sclera anicteric Pupils: Present: PERRL - Neck Neck exam general surgery: Present: supple, trachea midline. Absent: lymphadenopathy - Respiratory Respiratory exam: Present: CTAB. Absent: accessory muscle use, rales, rhonchi, wheezes - Cardiovascular Cardiovascular exam: Present: irregular rhythm, +S1, +S2. Absent: diastolic murmur, gallop, rubs, systolic murmur - GI/Abdominal GI/Abdominal exam: Present: normal bowel sounds, soft, no peritoneal signs. Absent: distended, tenderness - Extremities Exam Extremities exam: Present: warm, radial pulses palpable and symmetrical. Absent : calf tenderness, cyanotic, pedal edema - Neurological Exam Neurological exam: Present: CN II-XII intact, oriented X3, no focal deficits. Absent: pronater drift, facial droop, speech deficit - Skin Skin exam: Present: dry, intact - Other Additional findings: PEG tube in place, clean. - Patient Status Disposition: Home, Self-Care Condition: Good Functional capacity at discharge: independent ambulation Overall status at discharge: patient is progressing back to baseline - Discharge Instructions Follow Up With: Davy Holder DO [Primary Care Provider] - 09/01/17 1:30 pm - Diet and Activity Activity: increase activity as tolerated Diet: advance to your usual diet - VTE Documentation of Mechanical Device: Intermittent pneumatic compression device
[2017-08-24] MEDS: levoFLOXacin 750 MG TABLET PO SCH (07:45)
[2017-08-24] MEDS: Potassium Chloride Elixir 20 MEQ/15 ML UDC GTUBE SCH (07:45)
[2017-08-24] MEDS: metroNIDAZOLE 500 MG TABLET PO SCH (07:45)
== END 2017-08-24 09:50 | disposition home or self-care (01) | DRG 194 ==
LOC: 3ANU 14:40 → EMEROO 14:40 → SUATTDRO 20:05 → 3ANU 21:03
PROVIDERS: ADMIT Internal Medicine Nephrology; ATTEND Student in an Organized Health Care Education/Training Program

== ENCOUNTER 2019-12-03 13:20 | Observation (INO) ==
[2019-12-03] MEDS ORDERED: Azithromycin 500 MG in 0.9 % Sodium Chloride 250 ML IVPB ONE (15:25)
[2019-12-03] MEDS ORDERED: cefTRIAXone 1,000 MG in Water for inj. (sterile) 10 ML IVP ONE (15:29)
[2019-12-03 15:42] LABS: Eosinophils % 0.5 %; Hemoglobin 12.4 g/dL (12.9-16.9); Immature Granulocytes % 0.5 % (0-4); Red Cell Distribution Width 15.3 % (11.5-14.5)
[2019-12-03 15:44] LABS: Basophils % 0.2 %; Hematocrit 38.8 % (37.5-50.1); INR 1.4; Immature Platelets 5.1 % (1.1-6.1); Lymphocytes # 0.5 K/mcL (0.6-4.6); Lymphocytes % 8.2 %; Mean Corpuscular Volume 93.9 fL (83.0-100.0); Monocytes # 0.6 K/mcL (0.0-1.3); Monocytes % 10.5 %; Neutrophils # 4.7 K/mcL (1.6-8.9); Prothrombin Time 15.5 Seconds (9.4-12.1); Red Blood Count 4.13 M/mcL (4.19-5.50); Segmented Neutrophils % 80.1 %; White Blood Count 5.8 K/mcL (4.3-11.1)
[2019-12-03 15:47] LABS: Activated Partial Thrombo Time 31.3 Seconds (26.0-36.0)
[2019-12-03 15:54] LABS: Platelet Count 81 K/mcL (140-400)
[2019-12-03 15:59] LABS: Alanine Aminotransferase 20 Units/L (7-52); Albumin 3.5 g/dL (3.5-5.7); Alkaline Phosphatase 97 Units/L (34-104); Aspartate Amino Transferase 27 Units/L (13-39); BUN/Creatinine Ratio 40 (6-26); Bilirubin,Direct 0.5 mg/dL (0.0-0.2); Bilirubin,Indirect 1.4 mg/dL (0.0-1.0); Bilirubin,Total 1.9 mg/dL (0.3-1.0); Blood Urea Nitrogen 18 mg/dL (8-23); C-Reactive Protein 70 mg/L (Less than 10); Carbon Dioxide 33 mEq/L (23-29); Chloride 92 mEq/L (98-107); Globulin 3.5 g/dL (2.4-3.5); Glucose 98 mg/dL (70-105); Lactate Dehydrogenase 135 Units/L (140-271); Magnesium 1.9 mg/dL (1.6-2.6); Osmolality,Calculated 270 (280-300); Phosphorous 3.2 mg/dL (2.7-4.5); Potassium 4.4 mEq/L (3.5-5.1); Sodium 129 mEq/L (136-145); Troponin I 0.03 ng/mL (< 0.04); eGFR For African Americans > 60 (> 60); eGFR For Non-African Americans > 60 (> 60)
[2019-12-03 16:17] LABS: Ferritin 88 ng/mL (20-250)
[2019-12-03] MEDS ORDERED: methylPREDNISolone 125 MG/2 ML VIAL IVP ONE (16:21)
[2019-12-03] MEDS ORDERED: Naloxone 0.4 MG/ML INJ IVP PRN (17:36)
[2019-12-03] MEDS ORDERED: Ondansetron ODT 4 MG TAB.RAPDIS SL PRN (17:36)
[2019-12-03] MEDS ORDERED: Furosemide 40 MG/4 ML VIAL IVP ONE (17:41)
[2019-12-03] MEDS ORDERED: Albuterol 2.5 MG/3 ML NEBULIZER IH PRN (17:41)
[2019-12-03 17:49] LABS: Adenovirus Not Detected (Not Detect); Bordetella Pertussis Not Detected (Not Detect); Chlamydophila pneumoniae Not Detected (Not Detect); Coronavirus 229E Not Detected (Not Detect); Coronavirus HKU1 Not Detected (Not Detect); Coronavirus NL63 Not Detected (Not Detect); Coronavirus OC43 Not Detected (Not Detect); Human Metapneumovirus Not Detected (Not Detect); Human Rhinovirus/Enterovirus Not Detected (Not Detect); Influenza A Subtype 2009 H1 Not Detected (Not Detect); Influenza B Not Detected (Not Detect); Parainfluenza Virus 1 Not Detected (Not Detect); Parainfluenza Virus 2 Not Detected (Not Detect); Parainfluenza Virus 3 Not Detected (Not Detect); Parainfluenza Virus 4 Not Detected (Not Detect); Respiratory Syncytial Virus Not Detected (Not Detect); SARS-CoV-2 Not Detected (Not Detect)
[2019-12-03 17:50] LABS: Mycoplasma pneumoniae Not Detected (Not Detect)
[2019-12-03] MEDS ORDERED: Perflutren Lipid Microsphere 1.3 ML in 0.9 % Sodium Chloride 8.7 ML IVP PRN (18:12)
[2019-12-03] MEDS: Ipratropium/Albuterol Neb 3 ML IH SCH ×2 (20:05→23:44)
[2019-12-03] MEDS: Furosemide 40 MG/4 ML VIAL IVP SCH (23:08)
[2019-12-03] MEDS: ALPRAZolam 0.5 MG TABLET GTUBE SCH (23:10)
[2019-12-04] MEDS: Ipratropium/Albuterol Neb 3 ML IH SCH ×6 (03:41→23:19)
[2019-12-04 05:11] LABS: Hematocrit 37.5 % (37.5-50.1); Immature Platelets 5.1 % (1.1-6.1); Mean Corpuscular Volume 93.8 fL (83.0-100.0); Mean Platelet Volume 10.6 fL (9.4-12.4); Red Cell Distribution Width 15.2 % (11.5-14.5)
[2019-12-04 05:18] LABS: BUN/Creatinine Ratio 37 (6-26); Blood Urea Nitrogen 23 mg/dL (8-23); Calcium 9.1 mg/dL (8.6-10.3); Carbon Dioxide 31 mEq/L (23-29); Chloride 91 mEq/L (98-107); Glucose 145 mg/dL (70-105); Magnesium 1.8 mg/dL (1.6-2.6); Osmolality,Calculated 280 (280-300); Potassium 3.5 mEq/L (3.5-5.1); Sodium 132 mEq/L (136-145); eGFR For African Americans > 60 (> 60); eGFR For Non-African Americans > 60 (> 60)
[2019-12-04] MEDS ORDERED: Isovue-370 500 ML BOTTLE IVP ONE ×2 (07:15→07:16)
[2019-12-04] MEDS ORDERED: Azithromycin 250 MG TABLET PO SCH (09:00)
[2019-12-04] MEDS ORDERED: predniSONE 20 MG TABLET PO SCH (09:00)
[2019-12-04] MEDS: Ferrous Sulfate Oral Soln 300 MG/5 ML UDC GTUBE SCH ×2 (09:09→19:45)
[2019-12-04] MEDS: Furosemide 40 MG/4 ML VIAL IVP SCH (09:09)
[2019-12-04 22:09] LABS: RBC,Pleural Fluid > 5000000 RBC/mcL
[2019-12-04] MEDS: ALPRAZolam 0.5 MG TABLET GTUBE SCH (22:18)
[2019-12-04 22:23] LABS: Amylase,Pleural Fluid > 2000 Units/L (No Ref Range); Glucose,Pleural Fluid 17 mg/dL (No Ref Range); LDH,Pleural Fluid > 1200 Units/L (No Ref Range); Total Protein,Pleural Fluid 7.9 g/dL
[2019-12-04 23:44] LABS: Appearance of Pleural Fl Bloody (Clear)
[2019-12-04 23:53] LABS: Basophils,Pleural Fluid 0 %; Eosinophils,Pleural Fluid 0 %; Monocytes,Pleural Fluid 0 %
[2019-12-05 02:47] LABS: Mean Corpuscular Hemoglobin 30.6 pg (28.0-33.3)
[2019-12-05 02:48] LABS: Basophils % 0.1 %; Hematocrit 36.6 % (37.5-50.1); Hemoglobin 11.8 g/dL (12.9-16.9); Immature Granulocytes % 0.3 % (0-4); Immature Platelets 4.6 % (1.1-6.1); Lymphocytes # 0.3 K/mcL (0.6-4.6); Lymphocytes % 3.8 %; Mean Corpuscular HGB Conc 32.2 g/dL (31.6-35.5); Mean Corpuscular Volume 94.8 fL (83.0-100.0); Mean Platelet Volume 10.8 fL (9.4-12.4); Monocytes # 0.6 K/mcL (0.0-1.3); Monocytes % 7.5 %; Neutrophils # 6.7 K/mcL (1.6-8.9); Red Blood Count 3.86 M/mcL (4.19-5.50); Red Cell Distribution Width 15.7 % (11.5-14.5); Segmented Neutrophils % 88.3 %; White Blood Count 7.6 K/mcL (4.3-11.1)
[2019-12-05 02:53] LABS: Platelet Count 83 K/mcL (140-400)
[2019-12-05 03:06] LABS: Alanine Aminotransferase 20 Units/L (7-52); Albumin 3.4 g/dL (3.5-5.7); Albumin/Globulin Ratio 1.1 (1.1-2.2); Alkaline Phosphatase 86 Units/L (34-104); Aspartate Amino Transferase 35 Units/L (13-39); BUN/Creatinine Ratio 63 (6-26); Bilirubin,Total 1.1 mg/dL (0.3-1.0); Blood Urea Nitrogen 37 mg/dL (8-23); Calcium 9.4 mg/dL (8.6-10.3); Carbon Dioxide 35 mEq/L (23-29); Chloride 89 mEq/L (98-107); Globulin 3.1 g/dL (2.4-3.5); Glucose 128 mg/dL (70-105); Osmolality,Calculated 282 (280-300); Potassium 4.3 mEq/L (3.5-5.1); Sodium 131 mEq/L (136-145); Total Protein 6.5 g/dL (6.4-8.9); eGFR For African Americans > 60 (> 60); eGFR For Non-African Americans > 60 (> 60)
[2019-12-05] MEDS: Ipratropium/Albuterol Neb 3 ML IH SCH ×3 (03:16→11:36)
[2019-12-05] MEDS: Ferrous Sulfate Oral Soln 300 MG/5 ML UDC GTUBE SCH (08:43)
[2019-12-05] MEDS: Doxycycline 100 MG CAPSULE PO SCH (08:44)
[2019-12-05] MEDS ORDERED: predniSONE 20 MG TABLET GTUBE SCH (09:00)
[2019-12-05] MEDS ORDERED: Furosemide Oral Soln 40 MG/4 ML UDC GTUBE SCH (09:00)
[2019-12-05] MEDS ORDERED: Azithromycin 200 MG/5 ML UDC GTUBE SCH (09:00)
[2019-12-05] MEDS ORDERED: Aspirin Enteric Coated 81 MG Tablet PO SCH (09:00)
[2019-12-05 10:22] VITALS: BP 127/67
== END 2019-12-05 13:18 | disposition home or self-care (01) ==
LOC: 2ANU 13:20 → EMEROOARM 13:20 → SUATTDRO 18:02 → 2ANU 18:46
PROVIDERS: ADMIT Family Medicine; ATTEND Family Medicine

== ENCOUNTER 2020-07-03 08:57 | Inpatient (IN) ==
[2020-07-03] MEDS ORDERED: Haloperidol Lactate 5 MG/ML VIAL IVP PRN (09:19)
[2020-07-03] MEDS ORDERED: Acetaminophen 650 MG RECTAL SUPP RC PRN (09:19)
[2020-07-03] MEDS ORDERED: *HR* LORazepam 2 MG/ML VIAL IVP PRN (09:20)
[2020-07-03] MEDS ORDERED: Morphine Sulfate 2 MG/ML SYRINGE IVP PRN (09:22)
[2020-07-03] MEDS ORDERED: Scopolamine Patch 1.5 MG PATCH.TD72 TD SCH (09:30)
[2020-07-03] MEDS: Morphine Sulfate Oral CONC 10 MG/0.5 ML ORAL.SYG SL SCH ×4 (11:37→23:21)
[2020-07-03] MEDS: Atropine 1% Opth Drops 100 DROP/5 ML BOTTLE SL PRN ×2 (11:39→15:54)
[2020-07-03 19:14] VITALS: BP 52/32
== END 2020-07-04 00:12 | disposition expired | DRG 951 ==
LOC: 2ANU 10:05
PROVIDERS: ADMIT Internal Medicine; ATTEND Internal Medicine